=== PATIENT | male | born 1980 | race Caucasian/White ===

== ENCOUNTER 2016-11-15 11:03 | Day surgery (SDC) | payer OTHER ==
[~2016-11-15] VITALS: Ht 182.9 cm; Wt 120.2 kg
[~2016-11-15 11:03] MED LIST: AMBIEN 10MG TAB10 MG PO; CARVEDILOL6.25 MG PO; DICLOFENAC SODI50 M1 PO; ELAVIL25 MG PO; GABAPENTIN300 M1 PO; GABAPENTIN600 MG PO; IBUPROFEN600 MG PO; LORTAB 7.5/3251 TAB PO; NORCO 325 MG-51 TAB PO; NORCO1 TAB PO; PAXIL20 M1 PO; PHENERGAN 25MG.25 M1 PO; PRILOSEC20 M1 PO; PRILOSEC40 MG PO; PRINIVIL10 MG PO; ROBAXIN-750750 MG PO; TRAMADOL 50MG T50 MG PO
[2016-11-15 11:24] VITALS: BP 122/68
[2016-11-15] MEDS ORDERED: RISPERIDONE0.5 MG PO (11:31)
[2016-11-15] MEDS ORDERED: OMEGA-31000 M1 PO (11:32)
[2016-11-15] MEDS ORDERED: VITAMIN D31000 IU PO (11:32)
[2016-11-15 11:49] VITALS: BP 122/68; BP 146/84
[2016-11-15 12:05] VITALS: BP 142/76
--- NOTE | 2016-11-15 12:08 | Procedure Note ---
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 Post laminectomy syndrome lumbar spine. Post-procedure diagnosis: Same. Indications for procedure: Very pleasant 35-year-old white male we've been treating her pain clinic for quite some time for chronic low back pain secondary to degenerative disc disease lumbar spine multiple levels and post laminotomy syndrome lumbar spine. Patient has had lumbar epidural steroid injections in the past with minimal results. Today we will give him epidural steroid injection from the caudal approach. Procedure detail: Procedure: Caudal epidural steroid injection under fluoroscopy Informed consent was obtained and the risks and benefits of the procedure were explained to the patient. The patient was taken to the procedure room and noninvasive monitors placed, including noninvasive blood pressure cuff and pulse oximeter. The back was viewed using C-arm Fluoroscopy and prepped using Betadine as a cleansing solution and the caudal was visualized with fluoroscopy in the lateral position. Skin and subcutaneous tissues were anesthetized using lidocaine 1.5% and a 25-gauge needle. After this, an 25 Touhy spinal needle was placed into the caudal space using fluoroscopic guidance. Then a solution containing lidocaine 1.5%, 4 mL +3 mL of normal saline and Depo-Medrol 80 mg were incrementally injected into the lumbar epidural space. The patient tolerated the procedure well with no complications. The patient was observed in the Pain Clinic and then discharged home neurologically intact. Plan and disposition: Patient was reevaluated 10 minutes post procedure. Patient reports 90 percent improvement terms of his bilateral hip and leg pain. Patient continued to complain of pain at the injection site. Otherwise doing much better. He will be back to pain clinic for further evaluation. at 1202
[2016-12-27] MEDS ORDERED: LORTAB 7.5/3251 TAB PO (11:38)
[2017-01-20] MEDS ORDERED: PROBIOTIC1 EAC3 PO (11:40)
== END 2016-11-15 12:05 ==
LOC: PM 11:03
PROC: 3E0R33Z Introduction of Anti-inflammatory into Spinal Canal, Percutaneous Approach (ICD-10-PCS; principal; 2016-11-15)
PROC: 3E0R3BZ Introduction of Anesthetic Agent into Spinal Canal, Percutaneous Approach (ICD-10-PCS; 2016-11-15)
DX: M51.16 Intervertebral disc disorders with radiculopathy, lumbar region (principal); M96.1 Postlaminectomy syndrome, not elsewhere classified
CPT/HCPCS: J1040

== ENCOUNTER → 2017-02-07 | Outpatient (CLI) | payer OTHER ==
[~2017-02-07] MED LIST changes: +OMEGA-31000 M1 PO; +PROBIOTIC1 EAC3 PO; +RISPERIDONE0.5 MG PO; +VITAMIN D31000 IU PO
--- NOTE | 2017-02-08 14:08 | RADIOLOGY REPORT PS360 ---
MRI-T-SPINE W/O HISTORY: Worsening back pain, pain in right arm and shoulder WORSENING NECK PAIN ORDERING PHYSICIAN: Ted Mejias MD PATIENT AGE: 36 years COMPARISON: 01/07/2016 TECHNIQUE: Standard multiplanar multiecho sequences are performed without contrast. 3-D MIP and myelographic images are also rendered and reviewed FINDINGS: There is normal alignment. Mild multilevel disc desiccation with slight decrease in the disc spaces noted consistent with mild spondylosis of the thoracic spine. There is a small left paracentral disc protrusion/herniation at T6-T7 versus disc osteophyte complex. This is causing mild left lateral recess narrowing. Mild multilevel facet arthritic changes are noted as before with anterior osteophytes. IMPRESSION: 1. Mild generalized spondylosis of the thoracic spine. No acute fracture or dislocation. 2. Small left paracentral protrusion/herniation at T6-T7 versus disc osteophyte complex causing mild left lateral recess narrowing at that level
== END ==
LOC: RAD 13:27
DX: M54.2 Cervicalgia (principal); M54.6 Pain in thoracic spine

== ENCOUNTER 2017-08-12 14:57 | Emergency (ER) | payer MEDICAID ==
[~2017-08-12] VITALS: Ht 182.9 cm; Wt 122.5 kg
[~2017-08-12 14:57] MED LIST changes: +MOVANTIK12.5 MG PO; +MYRBETRIQ25 MG PO
--- OUTSIDE RECORDS SUMMARY | 2017-08-12 15:07 | External Medical Summary Rpt ---
Author Author [facility] Organization [facility] Address Unknown Phone Unavailable Care Team Providers Care Manager Assembly Name Role Phone DR MARILU PCP [phone] Encounter [facility] [id number] Date(s): 07/22/17 - 07/22/17 [facility] [address] [place] [address]- Discharge Diagnosis: Peripheral positional vertigo Discharge Diagnosis: Dizziness Discharge Diagnosis: Nausea Discharge Diagnosis: Chronic back pain Discharge Disposition: OP Self Care or Home Attending Physician: CASSANDRA PARKER MD-EMR Admitting Physician: CASSANDRA PARKER MD-LOVE Referring Physician: CASSANRDA PARKER MD-EMR Reason for Visit DIZZINESS AND GIDDINESS Vital Signs Most recent 1 2 to oldest [Reference Range]: Temperature Oral Source (07/22/17 1:18 AM) Temperature Fahrenheit Mode (07/22/17 1:18 AM) Temperature, 97.5 Deg F Fahrenheit (07/22/17 1:18 AM) [96.8-99.7 Deg F] Clinical 36.4 Deg C Temperature, (07/22/17 1:18 AM) C Peripheral 68 bpm 66 bpm Pulse Rate (07/22/17 3:46 AM) (07/22/17 1:18 AM) [60-100 bpm] Respiratory 16 Breaths/Min 18 Breaths/Min Rate [14-20 (07/22/17 3:46 AM) (07/22/17 1:18 AM) Breaths/Min] Blood 114/63 mmHg 130/83 mmHg Pressure (07/22/17 3:46 AM) (07/22/17 1:18 AM) [90-140/60-9 0 mmHg] Mean 80 mmHg Arterial (07/22/17 3:46 AM) Pressure (MAP) Oxygen 96 % 98 % Saturation (07/22/17 3:46 AM) (07/22/17 1:18 AM) [94-100 %] Oxygen Room air Room air Therapy Mode (07/22/17 3:46 AM) (07/22/17 1:18 AM) Height Stated Source (07/22/17 1:18 AM) Height Entry [place] Format (07/22/17 1:18 AM) Height/Lengt 5 ft h, ARMENIAN (07/22/17 1:18 AM) (ft) Height/Lengt 11 Inch h ARMENIAN (07/22/17 1:18 AM) CLINICALHEIG 180.34 cm HT (07/22/17 1:18 AM) Weight Critical estimated dosing Source, ED weight (07/22/17 1:18 AM) Weight Entry [place] Format (07/22/17 1:18 AM) Weight 260 lb [place] lb (07/22/17 1:18 AM) CLINICALWEIG 118.18 kg HT (07/22/17 1:18 AM) Body Surface 2.36 m2 Area (BSA) (07/22/17 1:18 AM) Body Mass 36.3 kg/m2 Index (BMI) *HI* [19-24 (07/22/17 1:18 AM) kg/m2] [place] Body 74.31 kg Weight (07/22/17 1:18 AM) Problem List Condition Effective Status Health Informant Dates Status Arthritis(Co Active nfirmed) Difficulty Active controlling anger(Confir med) GERD Active (gastroesoph ageal reflux disease)(Con firmed) Hx of Active seizure disorder(Con firmed)1 History of Active pericarditis (Confirmed) History of Active myocarditis( Confirmed) Hearing Active impaired(Con firmed) Hernia, Active hiatal(Confi rmed) Kidney Active stones(Confi rmed) Cervical Active herniated disc(Confirm ed) 1as a child Allergies, Adverse Reactions, Alerts Substance Reaction Severity Status Contrast Dye Itching Active Dilaudid Itching Active Medications acetaminophen-hydrocodone ([place] 7.5 mg-325 mg oral tablet)1 Tablet(s) Oral Every 6 Hours as needed for pain. carvedilol (Coreg 6.25 mg oral tablet) 1 Tablet(s) Oral Two Times A Day. cholecalciferol (Vitamin D3) 7,000 Milligram(s) Oral Every Day. diclofenac (diclofenac sodium 75 mg oral delayed release tablet)1 Tablet(s) Oral Two Times A Day. gabapentin (gabapentin 300 mg oral capsule) 2 Capsule(s) Oral Three Times A Day. lisinopril (lisinopril 10 mg oral tablet) 1 Tablet(s) Oral Every Day. meclizine (meclizine 25 mg oral tablet)1 Tablet(s) Oral Three Times A Day as needed as needed for dizziness for 7 Day(s). Refills: 0.Ordering provider: CASSANDRA PARKER MD-EMR methocarbamol (methocarbamol 750 mg oral tablet)2 Tablet(s) Oral Three Times A Day for 10 Day(s). omega-3 polyunsaturated fatty acids (Fish Oil) 1,400 Milligram(s) Oral Three Times A Day. omeprazole (omeprazole 40 mg oral delayed release capsule)1 Capsule(s) Oral Every Day. ondansetron (Zofran ODT 4 mg oral tablet, disintegrating)1 Tablet(s) Oral Three Times A Day for 3 Day(s). Refills: 0.Ordering provider: CASSANDRA PARKER MD-EMR PARoxetine (paroxetine 40 mg oral tablet) 0.5 Milligram(s) Oral Every Day. risperiDONE (risperiDONE 1 mg oral tablet) 1 Tablet(s) Oral Two Times A Day. Results GENERAL CHEMISTRY Most recent 1 to oldest [Reference Range]: Sodium Level 139 mmol/L [136-146 (07/22/17 2:20 AM) mmol/L] Potassium 4.0 mmol/L Level (07/22/17 2:20 AM) [3.5-5.1 mmol/L] Chloride 106 mmol/L Level (07/22/17 2:20 AM) [102-112 mmol/L] Carbon 27 mmol/L Dioxide (07/22/17 2:20 AM) Level [21-32 mmol/L] Anion Gap 10 [9-20] (07/22/17 2:20 AM) Glucose 103 mg/dL Level (07/22/17 2:20 AM) [74-106 mg/dL] Blood Urea 17 mg/dL Nitrogen (07/22/17 2:20 AM) [7-22 mg/dL] Creatinine 0.80 mg/dL Level (07/22/17 2:20 AM) [0.70-1.30 mg/dL] eGFR 131 mL/min/1.73m2 [>=60 (07/22/17 2:20 AM) mL/min/1.73m 2] eGFR 108 mL/min/1.73m2 NonAfrican (07/22/17 2:20 AM) [>=60 mL/min/1.73m 2] Bun/Creatini 21.2 ne *HI* [8.0-20.0] (07/22/17 2:20 AM) Calcium 9.0 mg/dL Level (07/22/17 2:20 AM) [8.5-10.1 mg/dL] CARDIAC SPECIFIC MARKERS Most recent 1 to oldest [Reference Range]: Troponin I <0.015 ng/mL Ultra (07/22/17 2:20 AM) [0.015-0.045 ng/mL] HEMATOLOGY Most recent 1 to oldest [Reference Range]: WBC [4.2-9.1 9.8 K/uL K/uL] *HI* (07/22/17 2:20 AM) RBC 4.58 Million/uL [4.63-6.08 *LOW* Million/uL] (07/22/17 2:20 AM) Hgb 13.3 g/dL [13.7-17.5 *LOW* g/dL] (07/22/17 2:20 AM) Hct 38.2 % [40.1-51.0 *LOW* %] (07/22/17 2:20 AM) MCV 83.4 fL [79.0-94.8 (07/22/17 2:20 AM) fL] MCH 29.0 pg [25.6-32.2 (07/22/17 2:20 AM) pg] MCHC 34.8 Gram/dL [32.2-36.5 (07/22/17 2:20 AM) Gram/dL] Platelet 312 K/uL Count (07/22/17 2:20 AM) [163-369 K/uL] MPV 8.9 fL [9.4-12.4 *LOW* fL] (07/22/17 2:20 AM) RDW 12.8 % [11.6-14.4 (07/22/17 2:20 AM) %] Neut % 50.2 % [34.0-71.0 (07/22/17 2:20 AM) %] Neut # 4.90 K/uL [1.56-6.13 (07/22/17 2:20 AM) K/uL] Lymph % 35.6 % [19.3-53.1 (07/22/17 2:20 AM) %] Lymph # 3.47 x10(3)/uL [1.00-3.90 (07/22/17 2:20 AM) x10(3)/uL] [place] % 10.1 % [3.0-9.0 %] *HI* (07/22/17 2:20 AM) [place] # 0.98 K/uL [0.16-1.00 (07/22/17 2:20 AM) K/uL] Eos % 3.2 % [0.0-7.0 %] (07/22/17 2:20 AM) Eos # 0.31 x10(3)/uL [0.00-0.80 (07/22/17 2:20 AM) x10(3)/uL] Baso % 0.6 % [0.0-1.5 %] (07/22/17 2:20 AM) Baso # 0.06 x10(3)/uL [0.00-0.20 (07/22/17 2:20 AM) x10(3)/uL] Slide Review No (07/22/17 2:20 AM) IG# 0.03 x10(3)/uL [0.00-0.05 (07/22/17 2:20 AM) x10(3)/uL] IG% 0.30 % [0.00-0.60 (07/22/17 2:20 AM) %] Immunizations No data available for this section Procedures No data available for this section Social History Social History Response Type Smoking Status Former smoker Assessment and Plan No data available for this section Hospital Discharge Instructions Patient EducationBack Exercises Benign Positional Vertigo Dizziness Nausea, Adult Vertigo
--- OUTSIDE RECORDS SUMMARY | 2017-08-12 15:07 | External Medical Summary Rpt ---
Author Author [facility] Organization [facility] Address Unknown Phone Unavailable Care Team Providers Care Wardrobe Technician Name Role Phone DR MARILU PCP [phone] Encounter [facility] [id number] Date(s): 07/22/17 - 07/22/17 [facility] [address] [place] [address]- Discharge Diagnosis: Peripheral positional vertigo Discharge Diagnosis: Dizziness Discharge Diagnosis: Nausea Discharge Diagnosis: Chronic back pain Discharge Disposition: OP Self Care or Home Attending Physician: CASSANDRA PARKER MD-EMR Admitting Physician: CASSANDRA PARKER MD-LOVE Referring Physician: CASSANDRA PARKER MD-EMR Reason for Visit DIZZINESS AND [...] Stated Source (07/22/17 1:18 AM) Height Entry [place] Format (07/22/17 1:18 AM) Height/Lengt 5 ft h, INDONESIAN (07/22/17 1:18 AM) (ft) Height/Lengt 11 Inch h INDONESIAN (07/22/17 1:18 AM) CLINICALHEIG 180.34 cm HT (07/22/17 1:18 AM) Weight Critical estimated dosing Source, ED weight (07/22/17 1:18 AM) Weight Entry [place] Format (07/22/17 1:18 AM) Weight 260 lb [place] lb (07/22/17 1:18 AM) CLINICALWEIG 118.18 kg HT (07/22/17 1:18 AM) Body Surface 2.36 m2 Area (BSA) (07/22/17 1:18 AM) Body Mass 36.3 kg/m2 Index (BMI) *HI* [19-24 (07/22/17 1:18 AM) kg/m2] [place] Body 74.31 kg Weight (07/22/17 1:18 AM) [...] Itching Active Dilaudid Itching Active Medications acetaminophen-hydrocodone ([place] 7.5 mg-325 mg oral tablet)1 Tablet(s) Oral [...] 3.47 x10(3)/uL [1.00-3.90 (07/22/17 2:20 AM) x10(3)/uL] [place] % 10.1 % [3.0-9.0 %] *HI* (07/22/17 2:20 AM) [place] # 0.98 K/uL [0.16-1.00 (07/22/17 2:20 AM) [...]
--- OUTSIDE RECORDS SUMMARY | 2017-08-12 15:07 | External Medical Summary Rpt ---
Author Author [facility] Organization [facility] Address Unknown Phone Unavailable Care Team Providers Care Passenger Elevator Operator Name Role Phone ANUEL, (REF) PCP [phone] Encounter [facility] [id number] Date(s): 12/09/16 - 12/09/16 [facility] [address] [place] [address]- Discharge Diagnosis: Colitis Discharge Diagnosis: Lower abdominal pain Discharge Disposition: OP Self Care or Home Attending Physician: GUSTABO DEL ANGEL, -EMR Admitting Physician: GUSTABO DEL ANGEL MD-EMR Referring Physician: GUSTABO DEL ANGEL MD-EMR Reason for Visit NONINFECTIVE GASTROENTERITIS AND COLITIS, UNSPECIFIED Vital Signs Most recent 1 2 to oldest [Reference Range]: Temperature Oral Source (12/09/16 4:47 PM) Temperature Fahrenheit Mode (12/09/16 4:47 PM) Temperature, 98.4 Deg F Fahrenheit (12/09/16 4:47 PM) [96.8-99.7 Deg F] Clinical 36.9 Deg C Temperature, (12/09/16 4:47 PM) C Peripheral 107 bpm 88 bpm Pulse Rate *HI* (12/09/16 4:47 PM) [60-100 bpm] (12/09/16 8:29 PM) Respiratory 18 Breaths/Min 18 Breaths/Min Rate [14-20 (12/09/16 8:29 PM) (12/09/16 4:47 PM) Breaths/Min] Blood 154/74 mmHg 135/64 mmHg Pressure *HI* (12/09/16 4:47 PM) [90-140/60-9 (12/09/16 8:29 PM) 0 mmHg] Oxygen 97 % Saturation (12/09/16 4:47 PM) [94-100 %] Oxygen Room air Therapy Mode (12/09/16 4:47 PM) Problem List Condition Effective Status Health Informant [...] Itching Active Dilaudid Itching Active Medications acetaminophen-hydrocodone ([place] 5 mg-325 mg oral tablet)1 Tab, Oral, Every 6 Hours, 3 Day(s), As Needed, for pain, Refills: 0Ordering provider: GAETANO HUTCHINSON APRN carvedilol (Coreg 6.25 mg oral tablet) 1 Tab, Oral, Two Times A Day, Refills: 0 cholecalciferol (Vitamin D3) 7,000 mg, Oral, Every Day, Refills: 0 ciprofloxacin (Cipro 500 mg oral tablet)1 Tab, Oral, every 12 hours, 7 Day(s), Refills: 0Ordering provider: GAETANO HUTCHINSON APRN diclofenac (diclofenac sodium 75 mg oral delayed release tablet)1 Tab, Oral, Two Times A Day, Refills: 0 lisinopril (lisinopril 10 mg oral tablet) 1 Tab, Oral, Every Day, Refills: 0 methocarbamol (methocarbamol 750 mg oral tablet)2 Tab, Oral, Three Times A Day, 10 Day(s), Refills: 0 metroNIDAZOLE (Flagyl 500 mg oral tablet)1 Tab, Oral, Every 8 Hours, 7 Day(s), Refills: 0Ordering provider: GAETANO HUTCHINSON APRN omega-3 polyunsaturated fatty acids (Fish Oil) 1,400 mg, Oral, Three Times A Day, Refills: 0 risperiDONE (risperiDONE 1 mg oral tablet) 1 Tab, Oral, Two Times A Day, Refills: 0 Results GENERAL CHEMISTRY Most recent 1 to oldest [Reference Range]: Sodium Level 141 mmol/L [136-146 (12/09/16 5:13 PM) mmol/L] Potassium 4.1 mmol/L Level (12/09/16 5:13 PM) [3.5-5.1 mmol/L] Chloride 107 mmol/L Level (12/09/16 5:13 PM) [102-112 mmol/L] Carbon 23 mmol/L Dioxide (12/09/16:13 PM) Level [21-32 mmol/L] Anion Gap 15 [9-20] (12/09/16 5:13 PM) Glucose 124 mg/dL Level *HI* [74-106 (12/09/16 5:13 PM) mg/dL] Blood Urea 17 mg/dL Nitrogen (12/09/16 5:13 PM) [7-22 mg/dL] Creatinine 1.00 mg/dL Level (12/09/16 5:13 PM) [0.70-1.30 mg/dL] eGFR 102 mL/min/1.73m2 [>=60 (12/09/16 5:13 PM) mL/min/1.73m 2] eGFR 84 mL/min/1.73m2 NonAfrican (12/09/16:13 PM) [>=60 mL/min/1.73m 2] Bun/Creatini 17.0 ne (12/09/16 5:13 PM) [8.0-20.0] Calcium 8.8 mg/dL Level (12/09/16 5:13 PM) [8.5-10.1 mg/dL] Protein 6.7 Gram/dL Total (12/09/16:13 PM) [6.4-8.2 Gram/dL] Albumin 3.5 Gram/dL Level (12/09/16 5:13 PM) [3.4-5.0 Gram/dL] Globulin 3.2 Gram/dL [1.5-4.5 (12/09/16 5:13 PM) Gram/dL] A/G Ratio 1.1 [1.1-2.5] (12/09/16 5:13 PM) Bilirubin 0.3 mg/dL Total (12/09/16 5:13 PM) [0.2-1.0 mg/dL] Alk Phos 108 Units/Liter [27-136 (12/09/16 5:13 PM) Units/Liter] AST [5-37 20 Units/Liter Units/Liter] (12/09/16 5:13 PM) ALT [12-78 39 Units/Liter Units/Liter] (12/09/16 5:13 PM) Lipase Level 130 Units/Liter [73-393 (12/09/16 5:13 PM) Units/Liter] Lactic Acid 1.8 mmol/L Level (12/09/16 5:13 PM) [0.4-2.0 mmol/L] HEMATOLOGY Most recent 1 to oldest [Reference Range]: WBC [4.2-9.1 10.0 K/uL K/uL] *HI* (12/09/16 5:13 PM) RBC 4.25 Million/uL [4.63-6.08 *LOW* Million/uL] (12/09/16 5:13 PM) Hgb 12.2 g/dL [13.7-17.5 *LOW* g/dL] (12/09/16 5:13 PM) Hct 36.2 % [40.1-51.0 *LOW* %] (12/09/16 5:13 PM) MCV 85.2 fL [79.0-94.8 (12/09/16 5:13 PM) fL] MCH 28.7 pg [25.6-32.2 (12/09/16 5:13 PM) pg] MCHC 33.7 Gram/dL [32.2-36.5 (12/09/16 5:13 PM) Gram/dL] Platelet 300 K/uL Count (12/09/16 5:13 PM) [163-369 K/uL] MPV 8.7 fL [9.4-12.4 *LOW* fL] (12/09/16 5:13 PM) RDW 12.7 % [11.6-14.4 (12/09/16 5:13 PM) %] Neut % 58.3 % [34.0-71.0 (12/09/16 5:13 PM) %] Neut # 5.84 K/uL [1.56-6.13 (12/09/16 5:13 PM) K/uL] Lymph % 27.8 % [19.3-53.1 (12/09/16 5:13 PM) %] Lymph # 2.79 x10(3)/uL [1.00-3.90 (12/09/16 5:13 PM) x10(3)/uL] [place] % 8.9 % [3.0-9.0 %] (12/09/16 5:13 PM) [place] # 0.89 K/uL [0.16-1.00 (12/09/16 5:13 PM) K/uL] Eos % 4.2 % [0.0-7.0 %] (12/09/16 5:13 PM) Eos # 0.42 x10(3)/uL [0.00-0.80 (12/09/16 5:13 PM) x10(3)/uL] Baso % 0.6 % [0.0-1.5 %] (12/09/16 5:13 PM) Baso # 0.06 x10(3)/uL [0.00-0.20 (12/09/16 5:13 PM) x10(3)/uL] Slide Review No (12/09/16 5:13 PM) IG# 0.02 x10(3)/uL [0.00-0.05 (12/09/16 5:13 PM) x10(3)/uL] IG% 0.20 % [0.00-0.60 (12/09/16 5:13 PM) %] URINALYSIS Most recent 1 to oldest [Reference Range]: Urine Type U CleanCatch (12/09/16 5:13 PM) Urine Color Yellow *NA* (12/09/16 5:13 PM) Urine Clear Appearance (12/09/16 5:13 PM) Urine 1.007 Specific (12/09/16 5:13 PM) [place] [1.005-1.030 ] Urine pH 6.0 Dipstick (12/09/16 5:13 PM) [6.0-8.0] Urine Negative Leukocyte (12/09/16 5:13 PM) Esterase [Negative] Urine Negative Nitrite (12/09/16 5:13 PM) [Negative] Urine Negative Protein (12/09/16 5:13 PM) Dipstick [Negative] Urine Negative Glucose (12/09/16 5:13 PM) Dipstick [Negative] Urine Negative Ketones (12/09/16 5:13 PM) Dipstick [Negative] Urine 0.2 EU/dL Urobilinogen (12/09/16 5:13 PM) Dipstick Urine Negative Bilirubin (12/09/16 5:13 PM) Dipstick [Negative] Urine Blood Negative Dipstick (12/09/16 5:13 PM) [Negative] Ur Bacteria Trace *ABN* (12/09/16 5:13 PM) Ur 0-2 /HPF Epithelial *ABN* Cells (12/09/16 5:13 PM) Microbiology Reports TEST: Urine Culture STATUS: Order in Progress BODY SITE: SOURCE: Urine, Clean Catch COLLECTED DATE/TIME: 12/09/16 5:13 PMPRELIMINARY REPORTNo growth Immunizations No data available for this section Procedures No data available for this section Social History Social History Response Type Smoking Status Former smoker Assessment and Plan No data available for this section Hospital Discharge Instructions Patient EducationColitis Food Choices to Help Relieve Diarrhea, Adult Gastrointestinal Bleeding, [id number]
--- OUTSIDE RECORDS SUMMARY | 2017-08-12 15:07 | External Medical Summary Rpt ---
Author Author [facility] Organization [facility] Address Unknown Phone Unavailable Care Team Providers Care Card Services Specialist Name Role Phone ANUEL, (REF) PCP [phone] Encounter [facility] [id number] Date(s): 12/09/16 - 12/09/16 [facility] [address] [place] [address]- Discharge Diagnosis: Colitis Discharge Diagnosis: Lower abdominal [...] Itching Active Dilaudid Itching Active Medications acetaminophen-hydrocodone ([place] 5 mg-325 mg oral tablet)1 Tab, Oral, [...] 2.79 x10(3)/uL [1.00-3.90 (12/09/16 5:13 PM) x10(3)/uL] [place] % 8.9 % [3.0-9.0 %] (12/09/16 5:13 PM) [place] # 0.89 K/uL [0.16-1.00 (12/09/16 5:13 PM) [...] PM) Urine 1.007 Specific (12/09/16 5:13 PM) [place] [1.005-1.030 ] Urine pH 6.0 Dipstick (12/09/16 [...] to Help Relieve Diarrhea, Adult Gastrointestinal Bleeding, [id number]
--- OUTSIDE RECORDS SUMMARY | 2017-08-12 15:08 | External Medical Summary Rpt | CCD ---
Author Author , JAKE JOSEPH Address Unknown Phone [email or web address] Care Team Providers Care Sas Sql Developer Name Role Phone [facility] Unavailable Unavailable ASSOCIATES, [facility] MULBERRY, MULBERRY Unavailable Unavailable Purpose Continuity of Care Document - 07-11-2017 through 2016 Problems Code Diagnosis DOS Provider Status M5440 LUMBAGO 07-11-2017 [facility]ARE WITH ASSOCIATES SCIATICA UNSPECIFIED SIDE M549 DORSALGIA 07-11-2017 FAMILY CARE UNSPECIFIED ASSOCIATES Z8739 PERSONAL HX 07-11-2017 [facility]ILY [facility]ARE OTH DZ ASSOCIATES MUSCULOSKEL SYS&CONNECT V TISS G40.909 Epilepsy, unspecified , not intractable , without status epilepticus H81.399 Other peripheral vertigo, unspecified ear K21.9 Gastro-esop hageal reflux disease without esophagitis M19.90 Unspecified osteoarthri tis, unspecified site M54.9 Dorsalgia, unspecified R07.9 Chest pain, unspecified R11.0 Nausea R42 Dizziness and giddiness Z79.899 Other terminal operations manager (current) drug therapy Z87.442 Personal history of urinary calculi Z87.891 Personal history of nicotine dependence Z88.5 Allergy status to narcotic agent status Z90.89 Acquired absence of other organs Z91.041 Radiographi c dye allergy status Encounters Encounter Start End Date Code Location Performer Type Date OFFICE 53552 FAMILY MULBERRY OUTPATIEN 7 7 CARE T VISIT ASSOCIATE 15 S MINUTES
--- OUTSIDE RECORDS SUMMARY | 2017-08-12 15:08 | External Medical Summary Rpt | CCD ---
Demographics Preferred Language Cypriot Marital Status Unknown Yarsanism Affiliation Unknown Race Unknown Ethnic Group Unknown Author Author , JAKE JOSEPH Address Unknown Phone Immunization No patient found.
--- OUTSIDE RECORDS SUMMARY | 2017-08-12 15:08 | External Medical Summary Rpt | CCD ---
Demographics Preferred Language Armenian Marital Status Unknown Voodoo Affiliation Unknown Race Unknown Ethnic Group Unknown Author Author , JAKE JOSEPH Address Unknown Phone Immunization No patient found.
--- OUTSIDE RECORDS SUMMARY | 2017-08-12 15:08 | External Medical Summary Rpt | CCD ---
Author Author , JAKE JOSEPH Address Unknown Phone [email or web address] Care Team Providers Care Plan Coordinator Name Role Phone FAMILY CARE Unavailable Unavailable [...] Nausea R42 Dizziness and giddiness Z79.899 Other treasury associate (current) drug therapy Z87.442 Personal history of urinary calculi Z87.891 Personal history of nicotine dependence Z88.5 Allergy status to narcotic agent status Z90.89 Acquired absence of other organs Z91.041 Radiographi c dye allergy status Encounters Encounter Start End Date Code Location Performer Type Date OFFICE 98727 FAMILY MULBERRY OUTPATIEN 7 7 CARE T VISIT ASSOCIATE 15 S MINUTES
--- OUTSIDE RECORDS SUMMARY | 2017-08-12 15:08 | External Medical Summary Rpt | CCD ---
Author Author , JAKE JOSEPH Address Unknown Phone [email or web address] Care Team Providers Care Sql Server Consultant Name Role Phone [facility] Unavailable Unavailable ASSOCIATES, [facility] ANUEL AGEE Unavailable Unavailable Purpose Continuity of Care Document - 07-11-2017 through 2016 Problems Code Diagnosis DOS Provider Status M5440 LUMBAGO 07-11-2017 [facility]ARE WITH ASSOCIATES SCIATICA UNSPECIFIED SIDE M549 DORSALGIA 07-11-2017 FAMILY CARE UNSPECIFIED ASSOCIATES Z8739 PERSONAL HX 07-11-2017 FAMILY CARE OTH DZ ASSOCIATES MUSCULOSKEL SYS&CONNECT V TISS Encounters Encounter Start End Date Code Location Performer Type Date OFFICE 43019 FAMILY ANUEL OUTPATIEN 7 7 CARE T VISIT ASSOCIATE 15 S MINUTES
--- OUTSIDE RECORDS SUMMARY | 2017-08-12 15:08 | External Medical Summary Rpt ---
Author Author JA[facility] [employer]io, [employer] Organization [employer] Address Unknown Phone Unavailable
--- OUTSIDE RECORDS SUMMARY | 2017-08-12 15:08 | External Medical Summary Rpt | CCD ---
Author Author , JAKE JOSEPH Address Unknown Phone [email or web address] Care Team Providers Care Coupon And Bond Collection Clerk Name Role Phone FAMILY CARE Unavailable Unavailable [...] Date Code Location Performer Type Date OFFICE 25390 FAMILY ANUEL OUTPATIEN 7 7 CARE T VISIT ASSOCIATE 15 S MINUTES
--- NOTE | 2017-08-12 15:43 | Urgent Treatment Center Report ---
History of Present Issue Date/Time Seen by Provider 08/12/17 1543 Visit Reason Pt arrived:Walked Presenting Problem:PT C/O OF LOWER BACK PAIN THAT IS RADIATING DOWN THE BACK OF LEGS Location if Accident: Onset of symptoms date/time:08/06/17 or onset unknown for: Have you (or family members/close friends) recently traveled outside the [place]? N If Yes, where/when: Have you had exposure to infectious disease within the past month? TB? Other? Specify: Here w/ significant other c/o acute exacerbation of chronic low back pain following a fall one week ago. Primarily requesting xray to ensure no changes and [facility]. Reports he tripped, fell forward "onto my hands and knees". Extensive back hx w/ three prior surgeries, one being a fusion. Unable to report full hx or diagnosis. Knows DDD for sure. Most recent surgery he thinks in 2011. previously treated by pain mgmt at [facility] but due to change w/ insurance, had to return to [place] and now treated there. Currently weaning hydrocodone from 7.5mg QID to currently 1.5 tablets daily. "I hope to get off that". Also takes gabapentin 800mg TID, robaxin 750mg TID, diclofenac 75mg BID, lidocaine topically, uses TENs units as well as alternates heat and ice. Since fall, mid low back pain slowly getting worse. Most severe with sitting. Unable to sit or stand for any lengthy period of time. Describes a pinching. Pain radiating down kee LEs but not an abnormal symptom for him. Denies fever, incontinence, or more N/T then typically experiences. pt reports he is not here for further treatment of pain but instead, to ensure nothing has changed w/ xray. Source patient Exam Limitations no limitations (exam limited d/t pain), clinical condition ALLERGIES Coded Allergies: Iodinated Contrast- Oral and IV Dye (Iodinated Contrast Media - IV Dye) ( Intermediate, I-ITCHING 06/26/16) hydromorphone (From DILAUDID) (Intermediate, I-ITCHING 06/26/16) Home Medications Active Scripts Gabapentin 600 MG PO TID #90 TAB Ref 2 Prov: 03/28/16 HYDROCODONE/ACETAMINOPHEN (Lortab 7.5-325 MG Tablet) 1 TAB PO QID #120 TAB Prov: 12/27/16 Reported Medications OMEPRAZOLE MAGNESIUM (Prilosec 20MG) 20 MG PO BID PAROXETINE HCL (Paxil) 20 MG PO DAILY Methocarbamol (Robaxin 750MG) 750 MG PO TID Diclofenac Sodium 75 MG PO BID Carvedilol (Carvedilol 6.25MG) 12.5 MG PO BID LISINOPRIL (Lisinopril) 10 MG PO DAILY CHOLECALCIFEROL (VITAMIN D3) (Vitamin D) 7,000 IUNITS PO DAILY Lactobacillus Combo No.11 (Probiotic) 1 EACH PO DAILY Mirabegron (Myrbetriq) 25 MG PO DAILY NALOXEGOL OXALATE (Movantik) (Unknown Dose) PO DAILY History Medical History General CAD? Yes Angina: Yes ME: Yes Hypertension? No Hyperlipidemia? Yes CHF? No DVT? No PE? No COPD? No Asthma? Yes Anemia? No GERD? Yes Gastric ulcers? No GI Bleed? No Hernia? Yes Thyroid Problems? No Hypothyroidism? No CVA? No Seizures? Yes Diabetes? No Renal Insuffiency? No UTI? No Stones? Yes BPH? No GB Disease: No Nephritic Syndrome? No Asplenia? No Hepatitis? No Sickle Cell Disease? No Arthritis? Yes Migraines? Yes Cataracts? No Glaucoma? No MRSA? No HIV? No TB? No Anxiety? No Depression? No Cancer? No More? Yes Additional hx: PANCREATITIS, MYOCARDITIS, BRONCHITIS DDD LUMBAR SPINE,COLITIS Immunization HX DT/Tetanus 1-4 YRS Surgical Hx Previous Surgery?Y CYST REMOVED FROM NOSE L4L5 SURGERY HAND SX Family History Family HX Diabetes Yes Hypertension Yes Cancer Yes Social History Smoking Hx Smoker: Never Smoker Tobacco: No Packs/day N/A Alcohol Alcohol: No Review of Systems All Other Systems Reviewed and Negative (as appropriate) Constitutional denies malaise, weakness (unchanged) Musculoskeletal see HPI, denies joint swelling, denies neck pain Skin denies change in color, denies lesions, denies lumps Psychiatric/Neurological see HPI Physical Exam Vital Signs Vital Signs Date Time Temp Pulse Resp B/P Pulse O2 O2 Flow FiO2 Ox Delivery Rate 08/12 1658 98.0 79 20 116/65 98 08/12 1533 98.0 79 20 11665 98 General Appearance moderate distress, ambulating with cane, slightly kyphotic, shuffled gait, wincing w/ some movements, leaning forward resting on exam counter rather than sitting Neck non-tender, supple Respiratory Status No: respiratory distress. Lung Sounds anterior: lungs clear. posterior: lungs clear. bilateral: lungs clear. Cardiovascular regular rate/rhythm, no peripheral edema, no murmur Back bowel/bladder continent, decreased range of motion (spine, Kee hips ), gait abnormality, unable to get onto table for reflexes or straight leg raises, TTP lower lumbar/sacral spine and kee lumbar regions, lumbar spine scarring Neurologic alert, no motor/sensory deficits, oriented x 3 Skin normal color, warm/dry Medical Decision Making LABS/Meds/Orders Pt receiving controlled substance in ED? No Results/Orders Orders Procedure Date/time Status LUMBAR SPINE 5 VIEWS 08/12 1612 Active XRAY/CT/US XRAY/CT/US XRAY L-spine XR interpretation by reviewed by me (w/ FAVIAN Muro MD) Xray Results multiple chronic findings including bones spurs, DDD, prior fusion but no acute findings Progress [facility] Progress Notes Date 08/12/17 Time 1640 Comment Discussed xray results with patient. patient not seeking any treatment and just wanted to know if any changes. Plans to call and F[facility] with [facility]. STRONGLY encouraged. Discussed steroids again but d/t prior hx of hallucinations w/ steroids, patient not willing to try them. Departure Departure Time of Disposition 1645 Disposition DC Home or Self Care(routine) Clinical Impression Primary Impression: Acute exacerbation of chronic low back pain Condition STABLE Referrals NO REFERRAL Call [facility] and schedule follow up appointment. Return if continuing to get worse in the meantime or for any new symptoms as we discussed. Patient Instructions DI for Back Pain With Sciatica Additional Instructions Continue your chronic medications Find a position that is comfortable Do not stop moving, makes stiffness worse. Avoid movements that worsen pain [facility] with [facility] Call clinic tonight or in the morning for final xray results Discharge Counseling Counseled pt/family regarding diagnosis, test results, medications/RX, home care, follow up needs at [phone]
[2017-08-12 16:58] VITALS: BP 116/65
--- NOTE | 2017-08-12 20:29 | RADIOLOGY REPORT PS360 ---
LUMBAR SPINE 5 VIEWS HISTORY: chronic back pain w/ 3 surgeries, acute fall one week ago chronic back pain 3 surgeries. Fall one week ago Patient Age: 36 years: Male Ordering Physician: KAMAR RODRIGUEZ APRN TECHNIQUE: 5 view lumbar spine series COMPARISON :Previous MRI lumbar September 2016. FINDINGS Previous surgery L4/5 with likely previous discectomy and placement of with 2 disc spacer devices are seen.. These appear to be intact and the disc spaces maintained. Posterior marginal osteophytes and hypertrophic ridging seen at this level. Likely laminectomy to the left. Degenerative disc space narrowing L3/4. Most evident the right. Mild degenerative facet changes at the lower L-spine. No acute fracture or findings. Pedicles transverse processes SI joints intact. Incidental note is made of a small 4.5 mm calculus lower pole calyx right kidney. There is also a 2 mm [place] calcification again seen projected over mid right kidney noted on previous KUB February 2017. Consider CT to further evaluate these renal calculi and calcification pattern. A generous stool noted throughout the right and transverse colon otherwise unremarkable bowel gas pattern IMPRESSION 1. Postsurgical changes and degenerative changes L4/5.. ... . Two disc spacer devices at this level with mild disc space narrowing.. ... Mild diffuse posterior osteophyte ridging at this level which indents the thecal sac as seen on prior MRI. 2.... Disc space narrowing L3/4. Also Noted.. Scant posterior marginal osteophytes 3. Right renal calcifications/calculi. Consider CT to further evaluate, particularly if hematuria or flank pain Nearly 1 cm [place] type calcification suggested mid right kidney, as well as 4.5 mm punctate calcification lower pole right kidney noted 4. No acute findings lumbar spine
== END 2017-08-12 16:59 | disposition home or self-care (01) ==
LOC: ER 14:57 → UTC 14:57
DX: M54.5 Low back pain (principal); E78.5 Hyperlipidemia, unspecified; K21.9 Gastro-esophageal reflux disease without esophagitis; Z88.8 Allergy status to other drugs, medicaments and biological substances

== ENCOUNTER 2017-09-15 21:27 | Inpatient (IN) | payer MEDICAID ==
[~2017-09-15] VITALS: Ht 182.9 cm; Wt 118.1 kg
[~2017-09-15 21:27] MED LIST changes: -MOVANTIK12.5 MG PO; +MOVANTIK25 MG PO; +OMEPRAZOLE40 MG PO; -PRILOSEC20 M1 PO
[2017-09-15 21:29] VITALS: BP 122/79
--- NOTE | 2017-09-15 21:36 | Emergency Room Report ---
History of Present Illness Time Seen by 2130 Presenting Problem in Triage Pt arrived:Walked Presenting Problem:BEGAN FEELING LIGHTHEADED WITH DYSPNEA. CHEST PAIN BEGAN ABOUT 45 MINS AGO. PAIN UP HIS NECK. PT REPORTS PREVIOUS HX OF OR. Onset of symptoms date/time:09/15 or onset unknown for: Treatment Prior to Arrival: SERVER MANAGER Provided by: Sepsis Risk Assessment: Temp: 99.4 B/P: 122/79 MAP: 93 Pulse: 103 Resp: 16 Recent fever? N Clinical Suspician of Infection? N Mental Status: 1 - Regular (Normal Baseline) Sepsis Risk:Low Sepsis Risk Have you (or family members/close friends) recently traveled outside the [place]? N If Yes, where/when: Have you had exposure to infectious disease within the past month? N TB? Other? Specify: Comment The patient complains of chest pain. He says that about an hour ago he was taking a bag of garbage into the trashcan, but not exerting himself, when he developed chest pain in his lower sternal area that radiated up into his neck. He says it feels like the discomfort you get when he swallowing air bubble. He says he got lightheaded, presyncopal, short of breath, but not diaphoretic or nauseated. He says his heart was racing. Symptoms are now gone. No recent hospitlizations, travel or surgery. He says he has a prior history of pericarditis and myocarditis in 1996 1997, when in the . He says that it was explained to him that his pericarditis and myocarditis were likely due to the immunization series he received to be in the . He says that they also told him he had "2 heart attacks". However, he says he did not have a cardiac cath, angioplasty, or stent placement. He has not had surgery. 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 He says he has seen Dr. Ramos for cardiac evaluation who tells him that his heart is fine and he is not on any treatment for his heart. He has also seen Dr. Miller. He says he has had some problems with his blood pressure since he had back surgery. He also has high cholesterol. He has a history of heart disease in his grandmother, but not in first-degree relatives. He is a former smoker. ALLERGIES Coded Allergies: Iodinated Contrast- Oral and IV Dye (Iodinated Contrast Media - IV Dye) ( Intermediate, I-ITCHING 06/26/16) hydromorphone (From DILAUDID) (Intermediate, I-ITCHING 06/26/16) Home Medications Active Scripts Gabapentin 600 MG PO TID #90 TAB Ref 2 Prov: 03/28/16 HYDROCODONE/ACETAMINOPHEN (Lortab 7.5-325 MG Tablet) 1 TAB PO QID #120 TAB Prov: 12/27/16 Reported Medications Carvedilol (Carvedilol 6.25MG) 6.25 MG PO BID OMEPRAZOLE MAGNESIUM (Prilosec 20MG) 20 MG PO BID CHOLECALCIFEROL (VITAMIN D3) (Vitamin D) 7,000 IUNITS PO DAILY Acetaminophen (Tylenol XS 500MG) 325 MG PO Q6HP PRN PAIN PAROXETINE HCL (Paxil) 20 MG PO DAILY Methocarbamol (Robaxin 750MG) 750 MG PO TID Diclofenac Sodium 75 MG PO BID LISINOPRIL (Lisinopril) 10 MG PO DAILY Lactobacillus Combo No.11 (Probiotic) 1 EACH PO DAILY Mirabegron (Myrbetriq) 25 MG PO DAILY NALOXEGOL OXALATE (Movantik) (Unknown Dose) PO DAILY History Medical History General CAD? Yes Angina: Yes OR: Yes Hypertension? No Hyperlipidemia? Yes CHF? No DVT? No PE? No COPD? No Asthma? Yes Anemia? No GERD? Yes Gastric ulcers? No GI Bleed? No Hernia? Yes Thyroid Problems? No Hypothyroidism? No CVA? No Seizures? Yes Diabetes? No Renal Insuffiency? No End Stage Renal Disease? No UTI? No Stones? Yes BPH? No GB Disease: No Nephritic Syndrome? No Asplenia? No Hepatitis? No Sickle Cell Disease? No Arthritis? Yes Migraines? Yes Cataracts? No Glaucoma? No MRSA? No HIV? No TB? No Anxiety? No Depression? Yes Cancer? No More? Yes Additional hx: MYOCARDITIS, BRONCHITIS DDD LUMBAR SPINE,COLITIS Immunization Hx Ped.Immunizations UTD No DT/Tetanus 1-4 YRS Surgical Hx Previous Surgery?Y CYST REMOVED FROM NOSE L4L5 SURGERY HAND SX Family History Family Hx Diabetes Yes Hypertension Yes Cancer Yes Social History Smoking Hx Smoker: Former Smoker Tobacco: No Packs/day N/A Are you/the child exposed to second-hand smoke: Yes Alcohol Alcohol: No Additionial History Additional History Review of records shows emergency department chest pain workups here in 2016 in 2014 that were negative. Review of Systems All Other Systems Reviewed and Negative Constitutional denies diaphoresis Respiratory shortness of breath Cardiovascular chest pain, denies syncope Physical Exam Vital Signs Vital Signs Date Time Temp Pulse Resp B/P Pulse O2 O2 Flow FiO2 Ox Delivery Rate 09/16 0304 86 09/16 0304 98 ROOM AIR 09/16 0250 97.9 86 18 108/69 98 ROOM AIR 09/16 0249 98.6 86 16 111/71 96 09/16 0221 88 14 104/58 96 09/16 0220 14 09/16 0215 14 09/16 0214 98.6 88 16 113/62 09/16 0205 81 12 112/75 98 09/15 2329 98.6 94 18 110/67 99 09/15 2228 102 20 116/79 97 09/15 2129 99.4 103 16 122/79 98 General Appearance normal appearance, WD/WN Eye Exam - bilateral eye normal exam, bilateral eye PERRL, bilateral eye EOMI Ear, Nose, Throat hearing grossly normal, normal ENT inspection Neck normal inspection, non-tender, supple, full range of motion Respiratory Status Yes: trachea midline, chest symmetrical, non tender chest. No: respiratory distress. Lung Sounds bilateral: normal breath sounds, lungs clear. Cardiovascular normal exam, regular rate/rhythm, no peripheral edema, no gallop, no JVD, no murmur, no rub, normal peripheral pulses Peripheral Pulses Pulses normal Yes Gastrointestinal normal bowel sounds, normal exam, non tender, soft, no organomegaly Extremities non-tender, normal range of motion, normal inspection Neurologic alert, repairer shoe sticks II-XII nml as tested, normal exam, oriented x 3 Mental status normal mood/affect Skin intact, normal color, warm/dry Medical Decision Making LABS/Meds/Orders Pt receiving controlled substance in ED? No Results/Orders Laboratory Tests 09/16/17 0025: Troponin I 0.07 H 09/15/172149: Troponin I < 0.02 09/15/172149: Sodium 143, Potassium 4.1, Chloride 107, Carbon Dioxide 25, BUN 12, Creatinine 1.0, Estimated Creat Clear 174, Estimated GFR (MDRD) 84, Glucose 115 H, Calcium 9.2, Total Bilirubin 0.3, AST 20, ALT 42, Alkaline Phosphatase 94, Total Protein 7.9, Albumin 3.8, Globulin 4.1 H, Albumin/Globulin Ratio 0.9 L, WBC 9.4, RBC 5.02, Hgb 14.3, Hct 42.2, MCV 84.0, RDW 13.3, Plt Count 375, MPV 6.7 L, Gran % 57.1, Gran # 5.4, Lymphocytes % 30.8, Monocytes % 6.4, Eosinophils % 4.9, Basophils % 0.7, Lymphocytes # 2.9, Monocytes # 0.6, Eosinophils # 0.5 H, Basophils # 0.1, PUBS MCHC 33.8, MCH 28.4 Current Medication Orders Sig/Maame Start time Last Medication Dose Route Stop Time Status Admin Aspirin 325 MG DAILY 09/16 900 UNV PO Carvedilol 6.25 MG BID 09/16 900 UNV PO Gabapentin 600 MG TID 09/16 900 UNV PO Hydrocodone Bitart/ 1 TAB DAILY 09/16 900 UNVr Acetaminophen PO Lisinopril 10 MG DAILY 09/16 900 UNV PO Pantoprazole Sodium 20 MG BID 09/16 900 UNV PO Paroxetine HCl 20 MG DAILY 09/16 900 UNV PO Nitroglycerin 1 IN Q6 09/16 0500 UNV TP Influenza Virus 0.5 ML PRN PRN 09/16 023 UNV Vaccine Quadrival IM Nicotine 21 MG DAILYP PRN 09/16 0230 UNV TD Nitroglycerin 1 IN ONCE ONE 09/16 0230 DC 09/16 TP 09/16 231 0225 Nitroglycerin 0.4 MG [id number] PRN 09/16 023 UNV SL Sodium Chloride 10 ML PRN PRN 09/16 0230 UNV IV Nitroglycerin 0 .STK-MED ONE 09/16 225 DC .ROUTE Nitroglycerin 0.4 MG [id number] PRN 09/16 0215 AC 09/16 SL 0220 Nitroglycerin 0 .STK-MED ONE 09/16 0209 DC SL Sodium Chloride 10 ML PRN PRN 09/15 2200 AC IV 09/16 2147 Aspirin 324 MG ONCE ONE 09/15 2145 DC 09/15 PO 09/15 Aspirin 0 .STK-MED ONE 09/15 2137 DC .ROUTE Orders Procedure Date/time Status DIET-NOTHING BY MOUTH 09/16 B Active TROPONIN I 09/16 1300 Active TROPONIN I 09/16 0900 Active TROPONIN I 09/16 0500 Complete ADMITTED PT IS ACTUALLY IN BED 09/16 0301 Active TROPONIN I 09/16 0022 Complete ADMIT PATIENT 09/16 UNK Active PULSE OXIMETRY REQUEST 09/16 UNK Active OXYGEN REQUEST 09/16 UNK Active VITAL SIGNS 09/16 UNK Active MANAGER INVESTMENT BANKING 09/16 UNK Active POM NURSE BUD HOSE ORDER 09/16 UNK Active IV SALINE LOCK 09/16 UNK Active CODE STATUS 09/16 UNK Active PATIENT ACTIVITY ORDER 09/16 UNK Active PHYSICIANS CONSULT 09/16 UNK Active [facility] PHYS CONSULT 09/16 UNK Active TROPONIN I 09/15 2257 Complete IV SALINE LOCK 09/15 2148 Active CARD FILER 09/15 2148 Active ELECTROCARDIOGRAM REQUEST 09/15 2147 Active CHEST(2 VIEWS-NOT PORTABLE) 09/15 2147 Active CARD FILER 09/15 2147 Active CBC WITH AUTO DIFF 09/15 2147 Complete CHEM 12 PROFILE 09/15 2147 Complete CM/EKG CM/EKG Comments EKG interpreted by Alexey Wood MD: Rhythm: sinus Rate: 102 [place]: normal Ectopy: none Conduction: normal ST Segment Changes: Early repolarization T Wave Changes: none Q Waves: none No evidence of acute ischemia or injury Prior electrocardiagrams reviewed. No change from prior tracings. EKG #2 interpreted by Alexey Wood MD: Rhythm: sinus Rate: 79 [place]: normal Ectopy: none Conduction: normal ST Segment Changes: Early repolarization T Wave Changes: none Q Waves: none No evidence of acute ischemia or injury XRAY/CT/US XRAY/CT/US XRAY chest Comment X-ray interpreted by Alexey Wood M.D.: atelectasis versus scars in the bases. Degenerative changes of thoracic spine with spurs. Progress - 11:30 PM: Remains asymptomatic, no chest pain. HR 88. I discussed continuing his workup with a second troponin, 3 hours after the first. He is reluctant to do this, he would rather be discharged, but he does consent. 1:45 AM: Second troponin increased to 0.07. The patient has not had any recurrence of his chest pain. He has had a few twinges of chest wall pain, that he has had previously from spurs in his back, only when he moves. No return of chest pressure. He would prefer that I call Dr. Miller, rather than Dr. Ramos. I spoke with Dr. Miller, who recommends admission. No further instructions. I discussed the case with Dr. Roth and he will admit to his service. 1:55 AM: The patient now complains of return of some lower sternal chest pressure. Repeat electrocardiogram performed. 2:05 AM: Second electrocardiogram unremarkable. Patient states chest pressure has markedly decreased since laying down. Sublingual nitroglycerin ordered. 2:20 AM: Pain 1/10 after 1st NTG. 2:22 AM: Pain 0/10 after 2nd NTG. NTP ordered. Departure Departure Disposition Still a Patient Clinical Impression Primary Impression: Chest pain Qualifiers: Chest pain type: precordial pain Qualified Code: R07.2 - Precordial pain Secondary Impressions: Elevated troponin Condition STABLE Referrals Golden Martin MD (Family) ED Critical Care Critical Care No at 0801
--- NOTE | 2017-09-15 21:36 | Emergency Room Report ---
History of Present Illness Time Seen by 2130 Presenting Problem in Triage Pt arrived:Walked Presenting Problem:BEGAN FEELING LIGHTHEADED WITH DYSPNEA. CHEST PAIN BEGAN ABOUT 45 MINS AGO. PAIN UP HIS NECK. PT REPORTS PREVIOUS HX OF IN. Onset of symptoms date/time:09/15 or onset unknown for: Treatment Prior to Arrival: BUFFET ATTENDANT Provided by: Sepsis Risk Assessment: Temp: 99.4 B/P: 122/79 MAP: 93 Pulse: 103 Resp: 16 Recent fever? N Clinical Suspician of Infection? N Mental Status: 1 - Regular (Normal Baseline) Sepsis Risk:Low Sepsis Risk Have you (or family members/close friends) recently traveled outside the [place]? N If Yes, where/when: Have you had exposure to infectious disease within the past month? N TB? Other? Specify: Comment The patient complains of chest pain. He says that about an hour ago he was taking a bag of garbage into the trashcan, but not exerting himself, when he developed chest pain in his lower sternal area that radiated up into his neck. He says it feels like the discomfort you get when he swallowing air bubble. He says he got lightheaded, presyncopal, short of breath, but not diaphoretic or nauseated. He says his heart was racing. Symptoms are now gone. No recent hospitlizations, travel or surgery. He says he has a prior history of pericarditis and myocarditis in 1996 1997, when in the . He says that it was explained to him that his pericarditis and myocarditis were likely due to the immunization series he received to be in the . He says that they also told him he had "2 heart attacks". However, he says he did not have a cardiac cath, angioplasty, or stent placement. He has not had surgery. 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 He says he has seen Dr. Ramos for cardiac evaluation who tells him that his heart is fine and he is not on any treatment for his heart. He has also seen Dr. Miller. He says he has had some problems with his blood pressure since he had back surgery. He also has high cholesterol. He has a history of heart disease in his grandmother, but not in first-degree relatives. He is a former smoker. ALLERGIES Coded Allergies: Iodinated Contrast- Oral and IV Dye (Iodinated Contrast Media - IV Dye) ( Intermediate, I-ITCHING 06/26/16) hydromorphone (From DILAUDID) (Intermediate, I-ITCHING 06/26/16) Home Medications Active Scripts Gabapentin 600 MG PO TID #90 TAB Ref 2 Prov: 03/28/16 HYDROCODONE/ACETAMINOPHEN (Lortab 7.5-325 MG Tablet) 1 TAB PO QID #120 TAB Prov: 12/27/16 Reported Medications Carvedilol (Carvedilol 6.25MG) 6.25 MG PO BID OMEPRAZOLE MAGNESIUM (Prilosec 20MG) 20 MG PO BID CHOLECALCIFEROL (VITAMIN D3) (Vitamin D) 7,000 IUNITS PO DAILY Acetaminophen (Tylenol XS 500MG) 325 MG PO Q6HP PRN PAIN PAROXETINE HCL (Paxil) 20 MG PO DAILY Methocarbamol (Robaxin 750MG) 750 MG PO TID Diclofenac Sodium 75 MG PO BID LISINOPRIL (Lisinopril) 10 MG PO DAILY Lactobacillus Combo No.11 (Probiotic) 1 EACH PO DAILY Mirabegron (Myrbetriq) 25 MG PO DAILY NALOXEGOL OXALATE (Movantik) (Unknown Dose) PO DAILY History Medical History General CAD? Yes Angina: Yes IN: Yes Hypertension? No Hyperlipidemia? Yes CHF? No DVT? No PE? No COPD? No Asthma? Yes Anemia? No GERD? Yes Gastric ulcers? No GI Bleed? No Hernia? Yes Thyroid Problems? No Hypothyroidism? No CVA? No Seizures? Yes Diabetes? No Renal Insuffiency? No End Stage Renal Disease? No UTI? No Stones? Yes BPH? No GB Disease: No Nephritic Syndrome? No Asplenia? No Hepatitis? No Sickle Cell Disease? No Arthritis? Yes Migraines? Yes Cataracts? No Glaucoma? No MRSA? No HIV? No TB? No Anxiety? No Depression? Yes Cancer? No More? Yes Additional hx: MYOCARDITIS, BRONCHITIS DDD LUMBAR SPINE,COLITIS Immunization Hx Ped.Immunizations UTD No DT/Tetanus 1-4 YRS Surgical Hx Previous Surgery?Y CYST REMOVED FROM NOSE L4L5 SURGERY HAND SX Family History Family Hx Diabetes Yes Hypertension Yes Cancer Yes Social History Smoking Hx Smoker: Former Smoker Tobacco: No Packs/day N/A Are you/the child exposed to second-hand smoke: Yes Alcohol Alcohol: No Additionial History Additional History Review of records shows emergency department chest pain workups here in 2016 in 2014 that were negative. Review of Systems All Other Systems Reviewed and Negative Constitutional denies diaphoresis Respiratory shortness of breath Cardiovascular chest pain, denies syncope Physical Exam Vital Signs Vital Signs Date Time Temp Pulse Resp B/P Pulse O2 O2 Flow FiO2 Ox Delivery Rate 09/16 0304 86 09/16 0304 98 ROOM AIR 09/16 0250 97.9 86 18 108/69 98 ROOM AIR 09/16 0249 98.6 86 16 111/71 96 09/16 0221 88 14 104/58 96 09/16 0220 14 09/16 0215 14 09/16 0214 98.6 88 16 113/62 09/16 0205 81 12 112/75 98 09/15 2329 98.6 94 18 110/67 99 09/15 2228 102 20 116/79 97 09/15 2129 99.4 103 16 122/79 98 General Appearance normal appearance, WD/WN Eye Exam - bilateral eye normal exam, bilateral eye PERRL, bilateral eye EOMI Ear, Nose, Throat hearing grossly normal, normal ENT inspection Neck normal inspection, non-tender, supple, full range of motion Respiratory Status Yes: trachea midline, chest symmetrical, non tender chest. No: respiratory distress. Lung Sounds bilateral: normal breath sounds, lungs clear. Cardiovascular normal exam, regular rate/rhythm, no peripheral edema, no gallop, no JVD, no murmur, no rub, normal peripheral pulses Peripheral Pulses Pulses normal Yes Gastrointestinal normal bowel sounds, normal exam, non tender, soft, no organomegaly Extremities non-tender, normal range of motion, normal inspection Neurologic alert, therapeutic recreation specialist II-XII nml as tested, normal exam, oriented x 3 Mental status normal mood/affect Skin intact, normal color, warm/dry Medical Decision Making LABS/Meds/Orders Pt receiving controlled substance in ED? No Results/Orders Laboratory Tests 09/16/17 0025: Troponin I 0.07 H 09/15/172149: Troponin I < 0.02 09/15/172149: Sodium 143, Potassium 4.1, Chloride 107, Carbon Dioxide 25, BUN 12, Creatinine 1.0, Estimated Creat Clear 174, Estimated GFR (MDRD) 84, Glucose 115 H, Calcium 9.2, Total Bilirubin 0.3, AST 20, ALT 42, Alkaline Phosphatase 94, Total Protein 7.9, Albumin 3.8, Globulin 4.1 H, Albumin/Globulin Ratio 0.9 L, WBC 9.4, RBC 5.02, Hgb 14.3, Hct 42.2, MCV 84.0, RDW 13.3, Plt Count 375, MPV 6.7 L, Gran % 57.1, Gran # 5.4, Lymphocytes % 30.8, Monocytes % 6.4, Eosinophils % 4.9, Basophils % 0.7, Lymphocytes # 2.9, Monocytes # 0.6, Eosinophils # 0.5 H, Basophils # 0.1, PUBS MCHC 33.8, MCH 28.4 Current Medication Orders Sig/Maame Start time Last Medication Dose Route Stop Time Status Admin Aspirin 325 MG DAILY 09/16 900 UNV PO Carvedilol 6.25 MG BID 09/16 900 UNV PO Gabapentin 600 MG TID 09/16 900 UNV PO Hydrocodone Bitart/ 1 TAB DAILY 09/16 900 UNVr Acetaminophen PO Lisinopril 10 MG DAILY 09/16 900 UNV PO Pantoprazole Sodium 20 MG BID 09/16 900 UNV PO Paroxetine HCl 20 MG DAILY 09/16 900 UNV PO Nitroglycerin 1 IN Q6 09/16 0500 UNV TP Influenza Virus 0.5 ML PRN PRN 09/16 023 UNV Vaccine Quadrival IM Nicotine 21 MG DAILYP PRN 09/16 0230 UNV TD Nitroglycerin 1 IN ONCE ONE 09/16 0230 DC 09/16 TP 09/16 231 0225 Nitroglycerin 0.4 MG [id number] PRN 09/16 023 UNV SL Sodium Chloride 10 ML PRN PRN 09/16 0230 UNV IV Nitroglycerin 0 .STK-MED ONE 09/16 225 DC .ROUTE Nitroglycerin 0.4 MG [id number] PRN 09/16 0215 AC 09/16 SL 0220 Nitroglycerin 0 .STK-MED ONE 09/16 0209 DC SL Sodium Chloride 10 ML PRN PRN 09/15 2200 AC IV 09/16 2147 Aspirin 324 MG ONCE ONE 09/15 2145 DC 09/15 PO 09/15 Aspirin 0 .STK-MED ONE 09/15 2137 DC .ROUTE Orders Procedure Date/time Status DIET-NOTHING BY MOUTH 09/16 B Active TROPONIN I 09/16 1300 Active TROPONIN I 09/16 0900 Active TROPONIN I 09/16 0500 Complete ADMITTED PT IS ACTUALLY IN BED 09/16 0301 Active TROPONIN I 09/16 0022 Complete ADMIT PATIENT 09/16 UNK Active PULSE OXIMETRY REQUEST 09/16 UNK Active OXYGEN REQUEST 09/16 UNK Active VITAL SIGNS 09/16 UNK Active ADDICTION SOCIAL WORKER 09/16 UNK Active POM NURSE BUD HOSE ORDER 09/16 UNK Active IV SALINE LOCK 09/16 UNK Active CODE STATUS 09/16 UNK Active PATIENT ACTIVITY ORDER 09/16 UNK Active PHYSICIANS CONSULT 09/16 UNK Active SPECIALTY CLINIC PHYS CONSULT 09/16 UNK Active TROPONIN I 09/15 2257 Complete IV SALINE LOCK 09/15 2148 Active EXPLOSIVE TECHNICIAN 09/15 2148 Active ELECTROCARDIOGRAM REQUEST 09/15 2147 Active CHEST(2 VIEWS-NOT PORTABLE) 09/15 2147 Active EXPLOSIVE TECHNICIAN 09/15 2147 Active CBC WITH AUTO DIFF 09/15 2147 Complete CHEM 12 PROFILE 09/15 2147 Complete CM/EKG CM/EKG Comments EKG interpreted by Alexey Wood MD: Rhythm: sinus Rate: 102 [place]: normal Ectopy: none Conduction: normal ST Segment Changes: Early repolarization T Wave Changes: none Q Waves: none No evidence of acute ischemia or injury Prior electrocardiagrams reviewed. No change from prior tracings. EKG #2 interpreted by Alexey Wood MD: Rhythm: sinus Rate: 79 [place]: normal Ectopy: none Conduction: normal ST Segment Changes: Early repolarization T Wave Changes: none Q Waves: none No evidence of acute ischemia or injury XRAY/CT/US XRAY/CT/US XRAY chest Comment X-ray interpreted by Alexey Wood M.D.: atelectasis versus scars in the bases. Degenerative changes of thoracic spine with spurs. Progress - 11:30 PM: Remains asymptomatic, no chest pain. HR 88. I discussed continuing his workup with a second troponin, 3 hours after the first. He is reluctant to do this, he would rather be discharged, but he does consent. 1:45 AM: Second troponin increased to 0.07. The patient has not had any recurrence of his chest pain. He has had a few twinges of chest wall pain, that he has had previously from spurs in his back, only when he moves. No return of chest pressure. He would prefer that I call Dr. Miller, rather than Dr. Ramos. I spoke with Dr. Miller, who recommends admission. No further instructions. I discussed the case with Dr. Roth and he will admit to his service. 1:55 AM: The patient now complains of return of some lower sternal chest pressure. Repeat electrocardiogram performed. 2:05 AM: Second electrocardiogram unremarkable. Patient states chest pressure has markedly decreased since laying down. Sublingual nitroglycerin ordered. 2:20 AM: Pain 1/10 after 1st NTG. 2:22 AM: Pain 0/10 after 2nd NTG. NTP ordered. Departure Departure Disposition Still a Patient Clinical Impression Primary Impression: Chest pain Qualifiers: Chest pain type: precordial pain Qualified Code: R07.2 - Precordial pain Secondary Impressions: Elevated troponin Condition STABLE Referrals Golden Martin MD (Family) ED Critical Care Critical Care No at 0801
[2017-09-15] MEDS ORDERED: TYLENOL ES500 MG PO (21:39)
--- OUTSIDE RECORDS SUMMARY | 2017-09-15 21:40 | External Medical Summary Rpt | CCD ---
Author Author , JAKE JOSEPH Address Unknown Phone [email or web address] Care Team Providers Care Clinic Licensed Practical Nurse Name Role Phone [facility], Unavailable [facility]available [facility] Unavailable Unavailable [facility]OC[facility], [facility] Unavailable Unavailable [facility]ING [facility], [facility] Unavailable Unavailable EMER[facility]ENCY PH[facility], [facility], Unavailable Unavailable [facility] Purpose Continuity of Care Document - 04-12-2017 through 2016 Problems Code Diagnosis DOS Provider Status M549 DORSALGIA 08-12-2017 [facility] [id number] EPILEPSY 07-22-2017 [facility] INTRACT W/O STATUS EPILEPTICUS K01859 OTHER 07-22-2017 [facility]IG[facility] UNSPECIFIED EAR K219 GASTRO-ESOP 07-22-2017 [facility] DISEASE WITHOUT ESOPHAGITIS M1990 UNSPECIFIED 07-22-2017 [facility] OSTEOARTHRI TIS UNSPECIFIED SITE M545 LOW BACK 07-22-2017 [facility] R072 PRECORDIAL 07-22-2017 [facility] R0789 OTHER CHEST 07-22-2017 [facility] R079 CHEST PAIN 07-22-2017 [facility] R110 NAUSEA 07-22-2017 [facility] R42 DIZZINESS 07-22-2017 [facility] GIDDINESS [id number] PERSONAL 07-22-2017 [facility] HISTORY OF HOSPITAL URINARY CALCULI C29199 PERSONAL 07-22-2017 [facility] HISTORY OF HOSPITAL NICOTINE DEPENDENCE Z9089 ACQUIRED 07-22-2017 [facility] ABSENCE OF HOSPITAL OTHER ORGANS M5440 LUMBAGO 07-11-2017 [facility] [place] UNSPECIFIED SIDE Z8739 PERSONAL HX 07-11-2017 [facility] MUSCULOSKEL SYS&CONNECT V TISS K21.9 GASTRO-ESOP 04-12-2017 [facility] REFLUX DISEASE WITHOUT ESOPHAGITIS K29.50 UNSPECIFIED 04-12-2017 CHRONIC GASTRITIS WITHOUT BLEEDING K59.00 CONSTIPATIO 04-12-2017 N, UNSPECIFIED K64.1 SECOND 04-12-2017 [facility] HEMORRHO[facility] R10.31 RIGHT LOWER 04-12-2017 [facility] G40.909 Epilepsy, unspecified , not intractable , without status epilepticus H81.399 Other peripheral vertigo, unspecified ear M19.90 Unspecified osteoarthri tis, unspecified site M51.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
--- OUTSIDE RECORDS SUMMARY | 2017-09-15 21:40 | External Medical Summary Rpt | CCD ---
Author Author , JAKE JOSEPH Address Unknown Phone [email or web address] [employer]ed Care Team Providers Care Levee Superintendent Name Role Phone [facility], [facility]available [facility]available [facility] Unavailable Unavailable ASSOCIATES, [facility] Unavailable Unavailable IM[facility]ING [facility], [facility] Unavailable Unavailable EMERGENCY PHYS, [facility], Unavailable Unavailable [facility] Purpose Continuity of Care Document - 04-12-2017 through 2016 Problems Code Diagnosis DOS Provider Status M549 DORSALGIA 08-12-2017 [facility] [id number] EPILEPSY 07-22-2017 [facility] INTRACT W/O STATUS EPILEPTICUS U15479 OTHER 07-22-2017 [facility] UNSPECIFIED EAR K219 GASTRO-ESOP 07-22-2017 [facility] H RE[facility]UX [facility]PITAL DISEASE WITHOUT ESOPHAGITIS M1990 UNSPECIFIED 07-22-2017 [facility] OSTEOARTHRI TIS UNSPECIFIED SITE M545 LOW BACK 07-22-2017 [facility] R072 PRECORDIAL 07-22-2017 [facility] R0789 OTHER CHEST 07-22-2017 [facility] R079 CHEST PAIN 07-22-2017 [facility] R110 NAUSEA 07-22-2017 [facility] R42 DIZZINESS 07-22-2017 [facility] GIDDINESS C97928 PERSONAL 07-22-2017 [facility] HISTORY OF HOSPITAL URINARY CALCULI M06823 PERSONAL 07-22-2017 [facility] HISTORY OF HOSPITAL NICOTINE DEPENDENCE Z9089 ACQUIRED 07-22-2017 [facility] ABSENCE OF HOSPITAL OTHER ORGANS M5440 LUMBAGO [...] SKIN R42 Dizziness and giddiness Z79.899 Other assistant terminal manager (current) drug therapy Z87.442 Personal history of urinary calculi Z87.891 Personal history of nicotine dependence Z88.5 Allergy status to narcotic agent status Z90.89 Acquired absence of other organs Z91.041 Radiographi c dye allergy status Encounters Encounter Start End Date Code Location Performer Type Date [facility] [address]
--- OUTSIDE RECORDS SUMMARY | 2017-09-15 21:41 | External Medical Summary Rpt | CCD ---
Author Author , JAKE Organization JAKE Address Unknown Phone [email or web address] Care Team Providers Care Wet Wash Assembler Name Role Phone [facility], Unavailable Unavailable [facility] Unavailable Unavailable ASSOCIATES, [facility] Unavailable Unavailable IM[facility]ING [facility], [facility] Unavailable Unavailable [facility], [facility], Unavailable Unavailable [facility] Purpose Continuity of Care Document - 07-11-2017 through 2016 Problems Code Diagnosis DOS Provider Status M549 DORSALGIA 08-12-2017 [facility] [id number] EPILEPSY 07-22-2017 [facility] INTRACT W/O STATUS EPILEPTICUS X30547 OTHER 07-22-2017 [facility] VERTIGO UNSPECIFIED EAR K219 GASTRO-ESOP 07-22-2017 [facility] REFLUX HOSPITAL DISEASE WITHOUT ESOPHAGITIS M1990 UNSPECIFIED 07-22-2017 [facility] OSTEOARTHRI TIS UNSPECIFIED SITE M545 LOW BACK 07-22-2017 [facility] R072 PRECORDIAL 07-22-2017 [facility] R0789 OTHER CHEST 07-22-2017 [facility] R079 CHEST PAIN 07-22-2017 [facility] R110 NAUSEA 07-22-2017 [facility] R42 DIZZINESS 07-22-2017 [facility] GIDDINESS S80151 PERSONAL 07-22-2017 [facility] HISTORY OF HOSPITAL URINARY CALCULI O88361 PERSONAL 07-22-2017 [facility] HISTORY OF HOSPITAL NICOTINE DEPENDENCE Z9089 ACQUIRED 07-22-2017 [facility] ABSENCE OF HOSPITAL OTHER ORGANS M5440 LUMBAGO 07-11-2017 [facility] UNSPECIFIED SIDE Z8739 PERSONAL HX 07-11-2017 [facility] MUSCULOSKEL SYS&CONNECT V TISS Encounters Encounter Start End Date Code Location Performer Type Date [facility] [address] OUTPATI T
--- OUTSIDE RECORDS SUMMARY | 2017-09-15 21:41 | External Medical Summary Rpt | CCD ---
Demographics Preferred Language Mohawk Marital Status Unknown Cheondoism Affiliation Unknown Race Unknown Ethnic Group Unknown Author Author JAKE Address Unknown Phone Immunization No patient found.
--- OUTSIDE RECORDS SUMMARY | 2017-09-15 21:41 | External Medical Summary Rpt | CCD ---
Author Author , JAKE Organization JAKE Address Unknown Phone [email or web address] Care Team Providers Care Medical Library Assistant Name Role Phone [facility] Unavailable Unavailable [facility] Unavailable Unavailable ASSOCIATES, [facility] Unavailable Unavailable IM[facility]ING [facility], [facility] Unavailable Unavailable [facility], [facility], Unavailable Unavailable [facility] Purpose Continuity of Care Document - 07-11-2017 through 2016 Problems Code Diagnosis DOS Provider Status M549 DORSALGIA 08-12-2017 [facility] [id number] EPILEPSY 07-22-2017 [facility] INTRACT W/O STATUS EPILEPTICUS V15541 OTHER 07-22-2017 [facility] VERTIG[facility] UNSPECIFIED EAR K219 GASTRO-ESOP 07-22-2017 [facility] REFLUX HOSPITAL DISEASE WITHOUT ESOPHAGITIS M1990 UNSPECIFIED 07-22-2017 [facility] OSTEOARTHRI TIS UNSPECIFIED SITE M545 LOW BACK 07-22-2017 [facility] R072 PRECORDIAL 07-22-2017 [facility] R0789 OTHER CHEST 07-22-2017 [facility] R079 CHEST PAIN 07-22-2017 [facility] R110 NAUSEA 07-22-2017 [facility] R42 DIZZINESS 07-22-2017 [facility] GIDDINESS Z15827 PERSONAL 07-22-2017 [facility] HISTORY OF HOSPITAL URINARY CALCULI N44282 PERSONAL 07-22-2017 [facility] HISTORY OF HOSPITAL NICOTINE DEPENDENCE Z9089 ACQUIRED 07-22-2017 [facility] ABSENCE OF HOSPITAL OTHER ORGANS M5440 LUMBAGO 07-11-2017 [facility] UNSPECIFIED SIDE Z8739 PERSONAL HX 07-11-2017 [facility] MUSCULOSKEL SYS&CONNECT V TISS Encounters Encounter Start End Date Code Location Performer Type Date HOSPITAL [address] OUTPATI T
--- OUTSIDE RECORDS SUMMARY | 2017-09-15 21:41 | External Medical Summary Rpt | CCD ---
Demographics Preferred Language French Marital Status Unknown Rastafarian Affiliation Unknown Race Unknown Ethnic Group Unknown Author Author JAKE Address Unknown Phone Immunization No patient found.
[2017-09-15 22:03] LABS: HEMOGLOBIN 14.3 g/dL (14.1-18.0); LYMPH # 2.9 K/mm3 (0.7-4.5); LYMPH % 30.8 % (10-50)
[2017-09-16] VITALS (7 sets, daily range): BP systolic 89–141; BP diastolic 42–75
--- OUTSIDE RECORDS SUMMARY | 2017-09-16 02:04 | External Medical Summary Rpt | CCD ---
Author Author , JAKE JOSEPH Address Unknown Phone [email or web address] Care Team Providers Care Home Care Physical Therapist Name Role Phone [facility], Unavailable [facility]available [facility] Unavailable Unavailable ASSOCIATES, [facility] Unavailable Unavailable IM[facility]ING [facility], [facility] Unavailable Unavailable [facility]ERGENCY PH[facility], [facility], Unavailable Unavailable [facility] Purpose Continuity of Care Document - 04-12-2017 through 2016 Problems Code Diagnosis DOS Provider Status M549 DORSALGIA 08-12-2017 [facility] [id number] EPILEPSY 07-22-2017 [facility] INTRACT W/O STATUS EPILEPTICUS O72561 OTHER 07-22-2017 [facility] VERTIGO UNSPECIFIED EAR K219 GASTRO-ESOP 07-22-2017 [facility] H REFLUX HOSPITAL DISEASE WITHOUT ESOPHAGITIS M1990 UNSPECIFIED 07-22-2017 [facility] OSTEOARTHRI TIS UNSPECIFIED SITE M545 LOW BACK 07-22-2017 [facility] R072 PRECORDIAL 07-22-2017 [facility] R0789 OTHER CHEST 07-22-2017 [facility] R079 CHEST PAIN 07-22-2017 [facility] R110 NAUSEA 07-22-2017 [facility] R42 DIZZINESS 07-22-2017 [facility] GIDDINESS [id number] PERSONAL 07-22-2017 [facility] HISTORY OF HOSPITAL URINARY CALCULI N07165 PERSONAL 07-22-2017 [facility] HISTORY OF HOSPITAL NICOTINE DEPENDENCE Z9089 ACQUIRED 07-22-2017 [facility] ABSENCE OF HOSPITAL OTHER ORGANS M5440 [...] SKIN R42 Dizziness and giddiness Z79.899 Other regional intermodal truck driver (current) drug therapy Z87.442 Personal history of urinary calculi Z87.891 Personal history of nicotine dependence Z88.5 Allergy status to narcotic agent status Z90.89 Acquired absence of other organs Z91.041 Radiographi c dye allergy status Results Labs Lab Lab Date Result Refere Interp Status Commen Order Detail nces retati t Range on Serum or plasma troponin i.cardiac measu (09-16-2017 00:25) Serum = 0.07 0.00-0. complet or 017 ng/mL 06 ed plasma 00:25 troponi n i.cardi ac measu Comment: 0.04 - 0.49 IS AN INDETERMINANT ZONE Comment: And can be consistent with the following diseases: Comment: Comment: Trauma Critically ill patients Sheikh >30% TBSA Comment: CHF Hypothyroidism Amyloidosis Comment: Hypertension Myocarditis Sepsis Comment: Hypotension Rhabdomyolysis Vital exhaust. Comment: Postop surgery Pulmonary embolism CVA Comment: Renal failure Acute neurological disease Atrial fib. CBC w auto diff (09-15-2017 21:50) Blood = 9.4 4.8-10. complet leukocy 017 K/MM3 8 ed joseline 21:50 count (number /volume ) Automat = 13.3 11.5-17 complet ed 017 % .5 ed erythro 21:50 cyte distrib ution width Red = 5.02 4.6-6.2 complet blood 017 M/mm3 ed cell 21:50 count Blood = 375 142-424 complet platele 017 K/mm3 ed t count 21:50 Automat 2 = 6.7 7.4-10. complet ed 017 fl 4 ed blood 21:50 platele t mean volume clem [place] % = 6.4 % 1.7-9.3 complet 017 ed 21:50 Absolut 2 = 0.6 0.1-1.0 complet e 017 K/mm3 ed monocyt 21:50 e count Automat = 84.0 82.2-97 complet ed 017 fl .8 ed erythro 21:50 cyte mean corpusc ular v Automat = 33.8 31.8-35 complet ed 017 g/dl .4 ed erythro 21:50 cyte mean corpusc ular h Mean = 28.4 27-31.2 complet corpusc 017 pg ed ular 21:50 hemoglo bin (M[facility]) determ Lymphoc = 30.8 10-50 complet yte 017 % ed count, 21:50 blood, automat ed Absolut = 2.9 0.7-4.5 complet e 017 K/mm3 ed lymphoc 21:50 yte count Blood = 14.3 14.1-18 complet hemoglo 017 g/dL .0 ed bin 21:50 measure ment (mass/v olum Blood = 42.2 42.0-52 complet hematoc 017 % .0 ed rit 21:50 (volume fractio n) Granulo = 57.1 37.0-80 complet cyte 017 % .0 ed percent 21:50 age Blood = 5.4 1.3-8.0 complet granulo 017 K/mm3 ed cytes 21:50 automat ed count (numb Automat = 4.9 % 0.1-12. complet ed 017 0 ed blood 21:50 eosinop hils/10 0 leukocy t Automat 2 = 0.5 0.0-0.4 complet ed 017 K/mm3 ed blood 21:50 eosinop hil count Baso % = 0.7 % 0.1-2.0 complet 017 ed 21:50 Automat 2 = 0.1 0-0.2 complet ed 017 K/MM3 ed blood 21:50 basophi l count (count/ vo Encounters Encounter Start End Date Code Location Performer Type Date [facility] [address] [facility]
--- OUTSIDE RECORDS SUMMARY | 2017-09-16 02:04 | External Medical Summary Rpt | CCD ---
Author Author , JAKE JOSEPH Address Unknown Phone [email or web address] Care Team Providers Care Traveling Sales Representative Name Role Phone [facility], Un[facility] Unavailable Unavailable ASSOCIATES, [facility] Unavailable [facility]available [facility]ING [facility], [facility] Unavailable Unavailable EMERGENCY PHYS, [facility], Unavailable Unavailable [facility] Purpose Continuity of Care Document - 04-12-2017 through 2016 Problems Code Diagnosis DOS Provider Status M549 DORSALGIA 08-12-2017 [place] [facility] [id number] EPILEPSY 07-22-2017 [facility] INTRACT W/O STATUS EPILEPTICUS W63460 OTHER 07-22-2017 [facility] VERTIGO UNSPECIFIED EAR K219 GASTRO-ESOP 07-22-2017 [facility] H RE[facility]UX [facility]PITAL DISEASE WITHOUT ESOPHAGITIS M1990 UNSPECIFIED 07-22-2017 [facility] OSTEOARTHRI TIS UNSPECIFIED SITE M545 LOW BACK 07-22-2017 [facility] R072 PRECORDIAL 07-22-2017 [facility] R0789 OTHER CHEST 07-22-2017 [facility] R079 CHEST PAIN 07-22-2017 [facility] R110 NAUSEA 07-22-2017 [facility] R42 DIZZINESS 07-22-2017 [facility] GIDDINESS [id number] PERSONAL 07-22-2017 [facility] HISTORY OF HOSPITAL URINARY CALCULI O90171 PERSONAL 07-22-2017 [facility] HISTORY OF HOSPITAL NICOTINE DEPENDENCE Z9089 ACQUIRED 07-22-2017 [facility] ABSENCE OF HOSPITAL OTHER ORGANS M5440 [...] SKIN R42 Dizziness and giddiness Z79.899 Other adjunct faculty for medical terminology (current) drug therapy Z87.442 Personal history of [...] blood 21:50 platele t mean volume clem [place] % = 6.4 % 1.7-9.3 complet 017 [...] End Date Code Location Performer Type Date [facility] [address] [facility]
--- OUTSIDE RECORDS SUMMARY | 2017-09-16 02:05 | External Medical Summary Rpt | CCD ---
Author Author , JAKE Organization JKAE Address Unknown Phone [email or web address] Care Team Providers Care Silverware Etcher Name Role Phone [facility], [facility]available Unavailable [facility] Unavailable Unavailable ASSOCIATES, [facility] Unavailable Unavailable [facility]ING [facility], [facility] Unavailable [facility]available [facility], [facility], Unavailable Unavailable [facility] Purpose Continuity of Care Document - 07-11-2017 through 2016 Problems Code Diagnosis DOS Provider Status M549 DORSALGIA 08-12-2017 [facility] [facility] [id number] EPILEPSY 07-22-2017 [facility] INTRACT W/O STATUS EPILEPTICUS D44632 OTHER 07-22-2017 [facility] VERTIGO UNSPECIFIED EAR K219 GASTRO-ESOP 07-22-2017 [facility] REFLUX HOSPITAL DISEASE WITHOUT ESOPHAGITIS M1990 UNSPECIFIED 07-22-2017 [facility] OSTEOARTHRI TIS UNSPECIFIED SITE M545 LOW BACK 07-22-2017 [facility] R072 PRECORDIAL 07-22-2017 [facility] R0789 OTHER CHEST 07-22-2017 [facility] R079 CHEST PAIN 07-22-2017 [facility] R110 NAUSEA 07-22-2017 [facility] R42 DIZZINESS 07-22-2017 [facility] GIDDINESS H90144 PERSONAL 07-22-2017 [facility] HISTORY OF HOSPITAL URINARY CALCULI X50273 PERSONAL 07-22-2017 [facility] HISTORY OF HOSPITAL NICOTINE DEPENDENCE Z9089 ACQUIRED 07-22-2017 [facility] ABSENCE OF HOSPITAL OTHER ORGANS M5440 LUMBAGO 07-11-2017 [facility] [place] UNSPECIFIED SIDE Z8739 PERSONAL HX 07-11-2017 [facility] DZ [facility] MUSCULOSKEL SYS&CONNECT V TISS Encounters Encounter Start End Date Code Location Performer Type Date HOSPITAL [address] OUTPATI T
--- OUTSIDE RECORDS SUMMARY | 2017-09-16 02:05 | External Medical Summary Rpt | CCD ---
Author Author , JAKE Organization JAKE Address Unknown Phone [email or web address] Care Team Providers Care Echo Vascular Tech Name Role Phone [facility], Unavailable Unavailable [facility] Unavailable Unavailable ASSOCIATES, [facility] Unavailable Unavailable IMAGING ASS, [facility] Unavailable Unavailable [facility], [facility], Unavailable Unavailable [facility] Purpose Continuity of Care Document - 07-11-2017 through 2016 Problems Code Diagnosis DOS Provider Status M549 DORSALGIA 08-12-2017 [place] [facility] S38404 EPILEPSY 07-22-2017 [facility] INTRACT W/O STATUS EPILEPTICUS [id number] OTHER 07-22-2017 [facility] VERTIGO UNSPECIFIED EAR K219 GASTRO-ESOP 07-22-2017 [facility] REFLUX HOSPITAL DISEASE WITHOUT ESOPHAGITIS M1990 UNSPECIFIED 07-22-2017 [facility] OSTEOARTHRI TIS UNSPECIFIED SITE M545 LOW BACK 07-22-2017 [facility] R072 PRECORDIAL 07-22-2017 [facility] R0789 OTHER CHEST 07-22-2017 [facility] R079 CHEST PAIN 07-22-2017 [facility] R110 NAUSEA 07-22-2017 [facility] R42 DIZZINESS 07-22-2017 [facility] GIDDINESS G75751 PERSONAL 07-22-2017 [facility] HISTORY OF HOSPITAL URINARY CALCULI [id number] PERSONAL 07-22-2017 [facility] HISTORY OF HOSPITAL NICOTINE DEPENDENCE Z9089 ACQUIRED 07-22-2017 [facility] ABSENCE OF HOSPITAL OTHER ORGANS M5440 LUMBAGO 07-11-2017 [facility] [place] UNSPECIFIED SIDE Z8739 PERSONAL HX 07-11-2017 [facility] MUSCULOSKEL SYS&CONNECT V TISS Encounters Encounter Start End Date Code Location Performer Type Date HOSPITAL [address] OUTPATI T
--- OUTSIDE RECORDS SUMMARY | 2017-09-16 02:05 | External Medical Summary Rpt | CCD ---
Demographics Preferred Language Setswana Marital Status Unknown Worship Affiliation Unknown Race Unknown Ethnic Group Unknown Author Author JAKE Address Unknown Phone Immunization No patient found.
--- OUTSIDE RECORDS SUMMARY | 2017-09-16 02:05 | External Medical Summary Rpt | CCD ---
Demographics Preferred Language Occitan Marital Status Unknown Quaker Affiliation Unknown Race Unknown Ethnic Group Unknown Author Author JAKE Address Unknown Phone Immunization No patient found.
--- NOTE | 2017-09-16 08:11 | RADIOLOGY REPORT PS360 ---
CHEST(2 VIEWS-NOT PORTABLE) INDICATION: S pain COMPARISON: PA and lateral chest 10/11/2015 FINDINGS: The lung dawkins are well expanded and appear clear of infiltrate. The cardiomediastinal silhouette and vascularity are normal. The costophrenic angles are clear. The bony thorax is normal. IMPRESSION: Normal chest.
--- NOTE | 2017-09-16 09:14 | HISTORY AND PHYSICAL REPORT ---
History and Physical (FCA) Date of admission: 09/16/17 Chief complaint: Chest pain History: History of Present Illness: This 36-year-old white male presented in the emergency room at [facility]. He was carried out the garbage and he experienced some chest pain. The pain was in the epigastrium going up the chest and radiating to the neck. He felt that his heart rate was elevated during this period of time. He felt some shortness of breath. During his time in the emergency room his troponin went from 0.0 to 2.07. He was admitted for observation and possible cardiac catheterization. He does have a cardiac history. In 1996 during the time he was in the he had problems with pericarditis and myocarditis. There was some question of whether he had a myocardial infarction. However, he never had a cardiac catheterization. He has been seen by Dr. Estrellita Yanes but did not have a catheterization or treadmill test. He takes carvedilol but does not have a clear history for hypertension. He does not have a strong family history for her disease. His father is 58 years old however and does have angina. Maternal grandmother has diabetes. Past Medical History: Medical History: CAD? No (but unclear) Angina: Yes SC: Yes Hypertension? No (but unclear) Hyperlipidemia? Yes CHF? No DVT? No PE? No COPD? No Asthma? Yes (childhood) Anemia? No GERD? Yes (hiatal hernia) Gastric ulcers? No GI Bleed? No Hernia? Yes (hiatal) Thyroid Problems? No Hypothyroidism? No CVA? No Seizures? Yes (childhood) Diabetes? No Renal Insuffiency? No UTI? No Stones? Yes (none recent, 7mm in right) BPH? No GB Disease: No Nephritic Syndrome? No Asplenia? No Hepatitis? No Sickle Cell Disease? No Arthritis? Yes Migraines? Yes Cataracts? No Glaucoma? No MRSA? No HIV? No TB? No Anxiety? No Depression? Yes Cancer? No More? Yes Additional hx: 1996 MYOCARDITIS and PERICARDITIS BRONCHITIS DDD LUMBAR SPINE WITH ODZIPUITA27/15/2014,Dr. Lopez, 11/2014 Dr. Lopez, Spinal fusion Dr. Shaikh 08/2015 COLITIS Additional medical history: He is followed in the pain clinic at [facility]. He takes 1 Andes 7.5/325 daily. Surgical history: Previous Surgery?Y 1. CYST REMOVED FROM NOSE 2. Back surgeries as described above 3. 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 Medications: Active Scripts Gabapentin 600 MG PO TID #90 TAB Ref 2 Prov: 03/28/16 HYDROCODONE/ACETAMINOPHEN (Lortab 7.5-325 MG Tablet) 1 TAB PO QID #120 TAB Prov: 12/27/16 Reported Medications Carvedilol (Carvedilol 6.25MG) 6.25 MG PO BID OMEPRAZOLE MAGNESIUM (Prilosec 20MG) 20 MG PO BID CHOLECALCIFEROL (VITAMIN D3) (Vitamin D) 7,000 IUNITS PO DAILY Acetaminophen (Tylenol XS 500MG) 325 MG PO Q6HP PRN PAIN PAROXETINE HCL (Paxil) 20 MG PO DAILY Methocarbamol (Robaxin 750MG) 750 MG PO TID Diclofenac Sodium 75 MG PO BID LISINOPRIL (Lisinopril) 10 MG PO DAILY Lactobacillus Combo No.11 (Probiotic) 1 EACH PO DAILY Mirabegron (Myrbetriq) 25 MG PO DAILY NALOXEGOL OXALATE (Movantik) (Unknown Dose) PO DAILY Allergies: Coded Allergies: Iodinated Contrast- Oral and IV Dye (Iodinated Contrast Media - IV Dye) ( Intermediate, I-ITCHING 06/26/16) hydromorphone (From DILAUDID) (Intermediate, I-ITCHING 06/26/16) Family History: Family history: Postive for: CAD (father), DM (maternal grandmother). Social History: Smoking Hx Tobacco: No Smoker: Former Smoker (as teenager) Type: Cigarettes Packs/day: < 1 Pack Are you exposed to second hand Yes Alcohol: Alcohol: Yes (occasional bourbon) How much do you drink Less Than One Drink A Day For how long Longer Than 5 Years When was your last drink Greater Than 72 Hours Ago Hx of Drug Use: Drug Use? No Patien't marital status is: Patient's support system is: good Patient's occupation: Disabled due to the back problems Review of Systems: Patient unresponsive? No Constitutional No: chills, fatigue, malaise, weak, recent weight loss. ENT No: ear ache, nose bleed, ear drainage, hearing loss, mouth pain, nasal congestion, ear ringing, sinus problems, sore throat, throat swelling, tongue pain, tongue swelling, toothache, voice change. Cardiovascular Positive for: chest pain, palpitations. Respiratory Positive for: dyspnea on exertion. No: productive cough (sputum), wheezing. GI Positive for: GERD, hernia. No: dysphagia, hematemeis, nausea. Skin No: abrasions, itching, rash. Neurological Positive for: dizziness. No: change in LOC, bladder dysfunction, bowel dysfunction, confusion, headache. Immune/allergy Positive for: allergy (Dilaudid and x-ray dye). Eyes No: blurry vision, eye pain. Musculoskeletal Positive for: lumbar pain, myalgias. Psychiatric No: agitation, confused, change in mental status. Physical Exam: Vital signs: 1ST Vital Signs Result Date Time Pulse Ox 98 09/15 2129 B/P 122/79 09/15 2129 Temp 99.4 09/15 2129 Pulse 103 09/15 2129 Resp 16 09/15 2129 O2 Delivery ROOM AIR 09/16 025 O2 Flow Rate 2 09/16 0345 Exam: General appearance: normal appearance, alert, no acute distress Eyes: anicteric, conjunctiva clear, PERRLA ENT: mucous membranes moist Neck: normal inspection Cardiovascular: no ectopics, normal sinus rhythm, no murmur Respiratory: aerating well, clear to auscultation, no respiratory distress ABD: soft, no tenderness, no guarding, no organomegaly, obese Genitourinary: normal voiding & quantity Extremities: normal exam, no peripheral edema Musculoskeletal: normal exam Skin: normal exam, dry, intact, normal color Neuro: normal exam, alert, oriented, speech clear Lab data: Labs: Laboratory Tests 09/16/17 0500: Troponin I 0.03 09/16/17 0025: Troponin I 0.07 H 09/15/172149: Troponin I < 0.02 09/15/172149: Sodium 143, Potassium 4.1, Chloride 107, Carbon Dioxide 25, BUN 12, Creatinine 1.0, Estimated Creat Clear 174, Estimated GFR (MDRD) 84, Glucose 115 H, Calcium 9.2, Total Bilirubin 0.3, AST 20, ALT 42, Alkaline Phosphatase 94, Total Protein 7.9, Albumin 3.8, Globulin 4.1 H, Albumin/Globulin Ratio 0.9 L, WBC 9.4, RBC 5.02, Hgb 14.3, Hct 42.2, MCV 84.0, RDW 13.3, Plt Count 375, MPV 6.7 L, Gran % 57.1, Gran # 5.4, Lymphocytes % 30.8, Monocytes % 6.4, Eosinophils % 4.9, Basophils % 0.7, Lymphocytes # 2.9, Monocytes # 0.6, Eosinophils # 0.5 H, Basophils # 0.1, PUBS MCHC 33.8, MCH 28.4 Diagnosis(es): 1. Elevated troponin 2. Lumbar disc disease with radiculopathy 3. Chest pain 4. GERD (gastroesophageal reflux disease) 5. H/O pericarditis Plan: Cardiology consult at 0913
[2017-09-16] MEDS ORDERED: HYDROCODONE BIT1 T39 PO (10:06)
[2017-09-17] VITALS (8 sets, daily range): BP systolic 113–143; BP diastolic 63–92
--- NOTE | 2017-09-17 10:40 | PHARMACY CLINIC NOTE ---
Patient Demographics Patient Demographics Admission date: 09/16/17 Date: 09/17/17 Time: 1039 Allergies Coded Allergies: Iodinated Contrast- Oral and IV Dye (Iodinated Contrast Media - IV Dye) ( Intermediate, I-ITCHING 06/26/16) hydromorphone (From DILAUDID) (Intermediate, I-ITCHING 06/26/16) HEIGHT- FT: 6 IN: 0.00 K.134 VTE General Information Disclaimer The following section includes nursing documentation that has been pulled in for pharmacy review. Patient's VTE score: 1 Patient's VTE Risk: VERY LOW RISK Clinical trial participant? No VTE prophylaxis NQF [id number] VTE prophylaxis ordered? Yes Type of prophylaxis/treatment: BUD at 1038
--- NOTE | 2017-09-17 14:39 | ACUTE CARE PROGRESS NOTE (QUA) ---
See Addendum Progress Notes Subjective Date 09/17/17 Time 1436 Note He remains stable. He complains of some back pain. He asks about a lidocaine patch. Objective Findings Last VS-Temp:97.5 B/P:127/63 Pulse:80 Resp:18 SaO2:98 ROOM AIR Last weight lbs:260 oz:7 K.134 Method:Bed Scales Exam General appearance: alert, no acute distress Eyes: anicteric, PERRLA ENT: mucous membranes moist Cardiovascular: regular rate & rhythm Respiratory: clear to auscultation, good air movement ABD: soft, no tenderness Extremities: no peripheral edema Assessment/Plan Problem List 1. Elevated troponin 2. Lumbar disc disease with radiculopathy 3. Chest pain 4. GERD (gastroesophageal reflux disease) 5. H/O pericarditis Patient condition Stable Plan: I will contact Dr. Miller regarding disposition. Possible cath in the morning. This inpt stay is expected to cross 2 MNs from start of care Yes at 1432
[2017-09-18] VITALS (19 sets, daily range): BP systolic 99–132; BP diastolic 54–83
--- NOTE | 2017-09-18 08:43 | ACUTE CARE PROGRESS NOTE (QUA) ---
See Addendum Progress Notes Subjective Date 09/18/17 Time 0730 Note no further CP; denies SOB; ate without problems yesterday; has ambulated in the room; voiding without difficulty Objective Findings Vital Signs Date Time Temp Pulse Resp B/P Pulse O2 O2 Flow FiO2 Ox Delivery Rate 09/18 0742 97.4 80 20 107/68 95 ROOM AIR 09/18 0351 97.9 84 16 100/54 96 ROOM AIR 09/18 0016 98.0 95 16 132/81 98 ROOM AIR 09/17 1950 98.4 99 16 125/75 100 09/17 1936 98.4 99 16 125/75 100 ROOM AIR 09/17 1600 98.0 86 18 125/75 97 ROOM AIR 09/17 1144 97.5 80 18 127/63 98 ROOM AIR 09/17 0916 97.5 78 18 113/69 97 09/17 0909 18 Current Medications Acetaminophen 0 .STK-MED ONE PO (DC) Acetaminophen 0 .STK-MED ONE PO (DC) Acetaminophen 650 MG Q4HP PRN PO Aspirin 325 MG DAILY PO Carvedilol 6.25 MG BID PO Gabapentin 600 MG TID PO Hydrocodone Bitart/Acetaminophen 1 TAB DAILY PO (r) Lisinopril 10 MG DAILY PO Pantoprazole Sodium 40 MG BID PO Paroxetine HCl 20 MG DAILY PO Nitroglycerin 1 IN Q6 TP Influenza Virus Vaccine Quadrival 0.5 ML PRN PRN IM Nicotine 21 MG DAILYP PRN TD Sodium Chloride 10 ML PRN PRN IV Nitroglycerin 0.4 MG [id number] PRN SL 09/17 1500 09/17 2300 09/18 0700 Intake Total 750 Output Total Balance 750 Intake, Oral 750 Output, Stool Last VS-Temp:97.4 B/P:107/68 Pulse:80 Resp:20 SaO2:95 ROOM AIR Last weight lbs:260 oz:7 K.134 Method:Bed Scales Exam General appearance: alert, no acute distress, well-developed, well-nourished, awakened for exam Cardiovascular: regular rate & rhythm Respiratory: clear to auscultation (bilat anterior and posterior) ABD: soft, no tenderness, bowel sounds present Extremities: no peripheral edema, no calf tenderness Neuro: alert, oriented, speech clear Assessment/Plan Problem List 1. Elevated troponin 2. Lumbar disc disease with radiculopathy 3. Chest pain 4. GERD (gastroesophageal reflux disease) 5. H/O pericarditis Plan: continue current care, cardiology to see pt this AM This inpt stay is expected to cross 2 MNs from start of care Yes at 0843 at 0831
--- NOTE | 2017-09-18 10:41 | CONSULT NOTE ---
Standard Demographics Patient Demo Date of Consultation: 09/18/17 Referring Provider: Clyde Roth MD Reason for Consultation: Chest pain, Elevated troponin PRIMARY DIAGNOSIS: CHEST PAIN; ELEVATED TROPONIN Problem list Problem list: 1. Hypertension 2. Obesity 3. History of myocarditis/pericarditis at age 17 in the . This occurred after receiving multiple vaccinations in the . Reportedly treated with 2 injections into the heart per patient. 4. Hyperlipidemia 5. Family history coronary disease in his dad who is a smoker. 6. Chronic back pain with bone spur in the thoracic area and history of 2 surgeries to the L4-L5 area with some peripheral neuropathy intermittently. History of present illness: History of present illness: 36-year-old white male admitted over the weekend for chest pain. Patient was at home Monday evening when he developed sudden onset of epigastric pressure and discomfort that radiated up through the neck bilaterally. Symptoms of were not associated with significant shortness of breath or diaphoresis. He did have some nausea and did note brief discomfort improvement after belching. Symptoms last for about 45 minutes at which time he was in the emergency department and received nitroglycerin sublingual with resolution of symptoms. He has had no further episodes of chest discomfort during his hospitalization. His initial cardiac troponin was normal but his second troponin returned elevated with 3 subsequent normal troponins since then. Patient has an unusual cardiac history with history of myocarditis/pericarditis about 20 years ago. He denies having had a cardiac catheterization. Cardiology consulted for evaluation and recommendations. Patient's electrocardiogram is sinus with scooping ST elevation noted in the inferior and anterolateral leads, possible early repolarization abnormality. Past Medical History: General: Hypertension No (but unclear) CVA No Seizures Yes (childhood) TB No COPD No Asthma Yes (childhood) Diabetes No Angina Yes OK Yes Hyperlipidemia Yes Urinary Yes Cancer No Rheumatic H.D. No Ulcers No MRSA No GB Disease No Other MYOCARDITIS & PERICARDITI Additional hx 1996 MYOCARDITIS and PERICARDITIS BRONCHITIS DDD LUMBAR SPINE WITH [id number],Dr. Lopez, 11/2014 Dr. Lopez, Spinal fusion Dr. Shaikh 08/2015 COLITIS Past Surgical HX: Previous Surgery?Y CYST REMOVED FROM NOSE L4L5 SURGERY HAND SX Allergies Coded Allergies: Iodinated Contrast- Oral and IV Dye (Iodinated Contrast Media - IV Dye) ( Intermediate, I-ITCHING 06/26/16) hydromorphone (From DILAUDID) (Intermediate, I-ITCHING 06/26/16) Home medications: Active Scripts Gabapentin 600 MG PO TID #90 TAB Ref 2 Prov: 03/28/16 Reported Medications Omeprazole (Omeprazole 40MG) 40 MG PO DAILY CHOLECALCIFEROL (VITAMIN D3) (Vitamin D) 7,000 UNITS PO DAILY NALOXEGOL OXALATE (Movantik) 25 MG PO QAM HYDROCODONE/ACETAMINOPHEN (Hydrocodon-Acetaminoph 7.5-325) 1 TAB PO DAILY Carvedilol (Carvedilol 6.25MG) 6.25 MG PO BID Acetaminophen (Tylenol XS 500MG) 325 MG PO Q6HP PRN PAIN PAROXETINE HCL (Paxil) 20 MG PO DAILY Methocarbamol (Robaxin 750MG) 750 MG PO TID Diclofenac Sodium 75 MG PO BID LISINOPRIL (Lisinopril) 10 MG PO DAILY Lactobacillus Combo No.11 (Probiotic) 1 EACH PO DAILY Current Medications: Current Medications Diphenhydramine HCl 50 MG ONCE ONE IV (UNV) Famotidine 20 MG ONCE ONE IV (UNV) Methylprednisolone Sodium Succinate 125 MG ONCE ONE IV (UNV) Sodium Chloride 8 ML ONCE ONE IV (UNV) Hydrocodone Bitart/Acetaminophen 0 .STK-MED ONE PO (DCr) Fentanyl Citrate 25 MCG Q3MINP PRN IV Fentanyl Citrate 50 MCG Q3MINP PRN IV Flumazenil 0.2 MG PRN PRN IV Heparin Sodium (Beef Lung) 5,000 UNITS PRN PRN IV Heparin Sodium/Sodium Chloride 3,000 UNITS PRN PRN IV Lidocaine HCl 20 ML ONCE ONE IJ (DC) Midazolam HCl 1 MG Q3MINP PRN IV Midazolam HCl 1 MG Q3MINP PRN IV Naloxone HCl 0.4 MG [id number] PRN IV Nitroglycerin 800 MCG PRN PRN IV Verapamil HCl 5 MG PRN PRN IV Acetaminophen 0 .STK-MED ONE PO (DC) Acetaminophen 0 .STK-MED ONE PO (DC) Acetaminophen 650 MG Q4HP PRN PO Aspirin 325 MG DAILY PO Carvedilol 6.25 MG BID PO Gabapentin 600 MG TID PO Hydrocodone Bitart/Acetaminophen 1 TAB DAILY PO (r) Lisinopril 10 MG DAILY PO Pantoprazole Sodium 40 MG BID PO Paroxetine HCl 20 MG DAILY PO Nitroglycerin 1 IN Q6 TP Influenza Virus Vaccine Quadrival 0.5 ML PRN PRN IM Nicotine 21 MG DAILYP PRN TD Sodium Chloride 10 ML PRN PRN IV Nitroglycerin 0.4 MG [id number] PRN SL Immunization HX Ped.Immunizations UTD No DT/Tetanus 1-4 YRS AGO Flu [id number] Pneumonia Never Had TB Test in last year No Family history Family HX Family Hx Insignificant No Diabetes Yes CAD No Hypertension Yes Hyperlipidemia No Cancer Yes TB No Social Hx: Smoking HX Tobacco No Type Cigarettes Packs/day < 1 PACK Are you/the child exposed to second-hand smoke: Yes Alcohol Alcohol: Yes (occasional bourbon) How much do you drink Less Than One Drink A Day For how long Longer Than 5 Years When was your last drink Greater Than 72 Hours Ago Hx of Drug Use Drug Use? No Patien't marital status is Review of systems: Constitutional No: no symptoms reported. Respiratory No: no symptoms reported. Cardiovascular see HPI, chest pain Gastrointestinal/Abdominal abdominal pain Genitourinary No: no symptoms reported. Musculoskeletal back pain. Neurological No: no symptoms reported. Exam: Admission Vital Signs: 1ST Vital Signs Result Date Time Pulse Ox 98 09/15 2129 B/P 122/79 09/15 2129 Temp 99.4 09/15 2129 Pulse 103 09/15 2129 Resp 16 09/15 2129 O2 Delivery ROOM AIR 09/16 025 O2 Flow Rate 2 09/16 0345 Last Vital Signs: Vital Signs Result Date Time Resp 20 09/18 926 Pulse Ox 95 09/18 923 B/P 107/68 09/18 923 Temp 97.4 09/18 923 Pulse 80 09/18 923 O2 Delivery ROOM AIR 09/18 0742 O2 Flow Rate 2 09/16 0345 Exam General appearance: alert, awake, no acute distress Neck: no carotid bruit, no JVD Cardiovascular: regular rate & rhythm, no murmur Respiratory: clear to auscultation, good air movement ABD: soft, no tenderness Extremities: moves all, no peripheral edema Neuro: alert, intact, oriented Laboratory data: Laboratory Tests 09/16/17 1302: Troponin I < 0.02 09/16/17 0930: Troponin I < 0.02 09/16/17 0500: Troponin I 0.03 09/16/17 0025: Troponin I 0.07 H 09/15/170: Troponin I < 0.02 09/15/172149: Sodium 143, Potassium 4.1, Chloride 107, Carbon Dioxide 25, BUN 12, Creatinine 1.0, Estimated Creat Clear 174, Estimated GFR (MDRD) 84, Glucose 115 H, Calcium 9.2, Total Bilirubin 0.3, AST 20, ALT 42, Alkaline Phosphatase 94, Total Protein 7.9, Albumin 3.8, Globulin 4.1 H, Albumin/Globulin Ratio 0.9 L, WBC 9.4, RBC 5.02, Hgb 14.3, Hct 42.2, MCV 84.0, RDW 13.3, Plt Count 375, MPV 6.7 L, Gran % 57.1, Gran # 5.4, Lymphocytes % 30.8, Monocytes % 6.4, Eosinophils % 4.9, Basophils % 0.7, Lymphocytes # 2.9, Monocytes # 0.6, Eosinophils # 0.5 H, Basophils # 0.1, PUBS MCHC 33.8, MCH 28.4 Plan Assessment: 1. Chest pain with isolated elevated troponin in a patient with cardiac risk factors including hypertension, hyperlipidemia, family history and abnormal electrocardiogram. Patient is unable to adequately exercise due to chronic back pain for which he is on chronic narcotic therapy. His obesity precludes diagnostic Lexiscan Myoview interpretation. It is felt with the patient's symptoms, risk factors, elevated troponin and abnormal electrocardiogram that cardiac catheterization is the best option to define his coronary anatomy. Echocardiogram this morning does not show any evidence of pericardial effusion. It does show preserved LEFT ventricular ejection fraction without significant valvular heart disease. Risk and benefits discussed with patient and and patient agrees to proceed in this fashion. 2. Hypertension 3. Hyperlipidemia 4. Chronic pain syndrome with chronic narcotic use. 5. Obesity Plan: Discussed with Dr. Miller. See above. at 1047
--- NOTE | 2017-09-18 13:52 | RADIOLOGY REPORT PS360 ---
CARDIAC CATHETERIZATION DATE OF CATHETERIZATION:09/18/2017 1:32 PM PROCEDURES: 1. Left heart catheterization 2. Left ventriculogram 3. Selective coronary angiogram INDICATION FOR TEST: 1. Unstable angina Clinical history; 36-year-old gentleman who is hypertensive hyperlipidemic on chronic pain medicines/opiates who experienced prolonged chest pain radiating into his neck relieved by nitroglycerin accompanied by a troponin elevation. Patient had a baseline abnormal EKG and was unable to exercise on treadmill. Because of his distorted perception to pain from his chronic pain medications combined with his clinical presentation and associated risk factors with a troponin bump it was felt cardiac catheterization was most appropriate Informed consent was obtained prior to the procedure. COMPLICATIONS: None ESTIMATED BLOOD LOSS: Less than 10 ml. TECHNIQUE: One percent lidocaine used to anesthetize the right anterior aspect of the wrist. The right radial artery was accessed via the Seldinger technique. A 6 Green[place]ic sheath was placed in the right radial artery. 2.5 mg of verapamil, 800 mcg of nitroglycerin and 5000 U Heparin were given through the arterial sheath. The trap catheter was also used to perform left heart catheterization and left ventriculography. At the end of the procedure the patient was transferred to the post-op holding area in stable condition for arterial sheath removal. ANGIOGRAPHIC RESULTS: 1. The left main artery normal 2. The left anterior descending artery normal 3. The circumflex artery normal 4. The right coronary artery dominant normal 5. The LOVE ventriculogram reveals normal 65% 6. The left ventricular end-diastolic pressure 10 mmHg IMPRESSION: 1. Normal coronary arteries. 2. Normal ejection fraction 3. Normal left ventricular end-diastolic pressure PLAN: 1. Evaluation noncardiac chest pain 2. Risk factor modification
--- NOTE | 2017-09-18 16:50 | DISCHARGE SUMMARY STANDARD ---
Discharge Summary ([facility]2) Date of admission: 09/16/17 Date of discharge: 09/18/17 Problem List: 1. Elevated troponin 2. Lumbar disc disease with radiculopathy 3. Chest pain 4. GERD (gastroesophageal reflux disease) 5. H/O pericarditis History of present illness: Mr Jefferson is a 36-year-old white male who presented to the emergency room at [facility]. He was carrying out the garbage when he experienced some chest pain. The pain was in the epigastrium going up the chest and radiating to the neck. He felt that his heart rate was elevated during this period of time. He felt some shortness of breath. Symptoms lasted for about 45 minutes at which time he was in the emergency department and received nitroglycerin sublingual with resolution of symptoms. During his time in the emergency room his troponin went from 0.02 to 0.07. He was admitted for observation and possible cardiac catheterization. He was noted to have a cardiac history. In 1996 during the time he was in the he had problems with pericarditis and myocarditis. There was some question of whether he had a myocardial infarction. However, he never had a cardiac catheterization. He has been seen by Dr. Estrellita Yanes but did not have a catheterization or treadmill test. He has been taking carvedilol but does not have a clear history for hypertension. Exam on admission: 1ST Vital Signs Result Date Time Pulse Ox 98 09/15 2129 B/P 122/79 09/15 2129 Temp 99.4 09/15 2129 Pulse 103 09/15 2129 Resp 16 09/15 2129 O2 Delivery ROOM AIR 09/16 0250 O2 Flow Rate 2 09/16 0345 Exam: General appearance: normal appearance, alert, no acute distress Eyes: anicteric, conjunctiva clear, PERRLA ENT: mucous membranes moist Neck: normal inspection Cardiovascular: no ectopics, normal sinus rhythm, no murmur Respiratory: aerating well, clear to auscultation, no respiratory distress ABD: soft, no tenderness, no guarding, no organomegaly, obese Genitourinary: normal voiding & quantity Extremities: normal exam, no peripheral edema Musculoskeletal: normal exam Skin: normal exam, dry, intact, normal color Neuro: normal exam, alert, oriented, speech clear Hospital Course: After resolution of the CP in the ER patient had no further episodes of chest discomfort. His initial cardiac troponin was normal but his second troponin returned elevated with 3 subsequent normal troponins. Cardiology was consulted for evaluation and recommendations. Patient's electrocardiogram showed sinus with scooping ST elevation noted in the inferior and anterolateral leads, possible early repolarization abnormality. Cardiology made the following assessment: Chest pain with isolated elevated troponin in a patient with cardiac risk factors including hypertension, hyperlipidemia, family history and abnormal electrocardiogram. Patient was unable to adequately exercise due to chronic back pain for which he was on chronic narcotic therapy and his obesity precluded diagnostic Lexiscan Myoview interpretation. It was felt with the patient's symptoms, risk factors, elevated troponin and abnormal electrocardiogram that cardiac catheterization was the best option to define his coronary anatomy. Echocardiogram did not show any evidence of pericardial effusion. It did show preserved LEFT ventricular ejection fraction without significant valvular heart disease.. Left cardiac cath on 09/18/17 revealed: 1. Normal coronary arteries. 2. Normal ejection fraction 3. Normal left ventricular end-diastolic pressure Patient had no further chest discomfort. He was discharged on 09/18/17 and to follow up with his PCP for further evaluation of the chest pain and risk factor modification. Laboratory data this visit: 09/16/17 0500: Troponin I 0.03 09/16/17 0025: Troponin I 0.07 H 09/15/170: Troponin I < 0.02 09/15/170: Sodium 143, Potassium 4.1, Chloride 107, Carbon Dioxide 25, BUN 12, Creatinine 1.0, Estimated Creat Clear 174, Estimated GFR (MDRD) 84, Glucose 115 H, Calcium 9.2, Total Bilirubin 0.3, AST 20, ALT 42, Alkaline Phosphatase 94, Total Protein 7.9, Albumin 3.8, Globulin 4.1 H, Albumin/Globulin Ratio 0.9 L, WBC 9.4, RBC 5.02, Hgb 14.3, Hct 42.2, MCV 84.0, RDW 13.3, Plt Count 375, MPV 6.7 L, Gran % 57.1, Gran # 5.4, Lymphocytes % 30.8, Monocytes % 6.4, Eosinophils % 4.9, Basophils % 0.7, Lymphocytes # 2.9, Monocytes # 0.6, Eosinophils # 0.5 H, Basophils # 0.1, PUBS MCHC 33.8, MCH 28.4 Imagin09/15/17 CXR IMPRESSION: Normal chest. Discharge medications: Continue taking these medications: PAROXETINE HCL (Paxil) 20 MG TABLET 20 MILLIGRAM ORAL DAILY Methocarbamol (Robaxin 750MG) 750 MG TABLET 750 MILLIGRAM ORAL THREE TIMES A DAY Diclofenac Sodium (Diclofenac Sodium) 50 MG TABLET. 75 MILLIGRAM ORAL TWICE A DAY Carvedilol (Carvedilol 6.25MG) 6.25 MG TABLET 6.25 MILLIGRAM ORAL TWICE A DAY LISINOPRIL (Lisinopril) 10 MG TABLET 10 MILLIGRAM ORAL DAILY Gabapentin (Gabapentin) 600 MG TABLET 600 MILLIGRAM ORAL THREE TIMES A DAY Qty = 90 Omeprazole (Omeprazole 40MG) 40 MG CAPSULE. 40 MILLIGRAM ORAL DAILY CHOLECALCIFEROL (VITAMIN D3) (Vitamin D) 1,000 UNIT TABLET 7,000 UNITS ORAL DAILY Lactobacillus Combo No.11 (Probiotic) 1 EACH CAP.SPRINK 1 EACH ORAL DAILY NALOXEGOL OXALATE (Movantik) 25 MG TABLET 25 MILLIGRAM ORAL EVERY MORNING Acetaminophen (Tylenol XS 500MG) 500 MG TABLET 325 MILLIGRAM ORAL EVERY 6 HOURS NEEDED as needed for PAIN HYDROCODONE/ACETAMINOPHEN (Hydrocodon-Acetaminoph 7.5-325) 1 EACH TABLET 1 TABLET ORAL DAILY Disposition: Discharged to home in stable and satisfactory condition. Follow up: 7 DAYS with: KAMAR RODRIGUEZ Activity: Cont Current activity Diet: Continue same diet Discharge to: HOME Agency needed? N To continue with meds as per reconciliation sheet at 1706
--- NOTE | 2017-09-18 20:03 | RADIOLOGY REPORT PS360 ---
PROCEDURE: 2-D M-mode and color Doppler study INDICATIONS FOR THE TEST: Chest pain X COPD Heart Murmur Tobacco Smoking Palpitations Fatigue Syncope Edema Hypertension Diabetes Mellitus Rheumatic Fever SOB GRAF Obesity Hyperlipidemia Family History HD Additional History PATIENT INFORMATION HEIGHT: 72 WEIGHT:260 GENDER: Male B/P:122/79 2-D/M-MODE INTERPRETATION: 2-D MEASUREMENTS OBSERVED VALUES IN CMS Right Ventricular Dimension (RVDd) 2.3 Interventricular Septum (Thickness)(IVsd) 1.0 Left Ventricular Internal Dimensions(LVIDd) 5.0 Left Ventricular Posterior Wall (Thickness)(LVPWd) 1.0 Aortic Root 3.5 Aortic Cusp Separation 2.2 Left Atrial Dimensions (LAD) 4.7 2D 1. Left atrium is mildly enlarged, left ventricle is normal size, left ventricle wall thickness is upper limit of the normal, visually estimated ejection fraction approximately 50%, there appears to be apical wall motion abnormality, endocardial surfaces are poorly visualized. 2. The right atrium and right ventricle are normal size and contractility. 3. The aortic valve is minimally thickened and fibrosed. 4. The mitral and tricuspid valve leaflets are grossly normal. 5. The pulmonic valve is poorly visualized. 6. No significant pericardial effusion noted. DOPPLER INTERROGATION: Doppler interrogation of the aortic, mitral and tricuspid valvular presence of mild mitral and tricuspid regurgitation, tricuspid regurgitant jet velocity insufficient for calculation of the right ventricular systolic pressure, grade 1 diastolic dysfunction seen without tissue Doppler evidence of raised left atrial pressure. CONCLUSION: 1. Mildly enlarged left atrium, normal left ventricular size, visually estimated ejection fraction 50% with segmental wall motion abnormality described above, endocardial surface of poorly visualized. Grade 1 diastolic dysfunction seen without tissue Doppler evidence of raised left atrial pressure. 2. Mild mitral and tricuspid regurgitation. 3. No significant pericardial effusion noted.
== END 2017-09-18 18:40 | disposition home or self-care (01) | DRG 287 ==
LOC: ER 21:27 → 2ND 09-16 01:58
PROVIDERS: Emergency Medicine; Internal Medicine
PROC: B2111ZZ Fluoroscopy of Multiple Coronary Arteries using Low Osmolar Contrast (ICD-10-PCS; 2017-09-18)
PROC: B2151ZZ Fluoroscopy of Left Heart using Low Osmolar Contrast (ICD-10-PCS; 2017-09-18)
PROC: 4A023N7 Measurement of Cardiac Sampling and Pressure, Left Heart, Percutaneous Approach (ICD-10-PCS; principal; 2017-09-18 14:45)
DX: R07.9 Chest pain, unspecified (principal); G89.4 Chronic pain syndrome; I10 Essential (primary) hypertension; Z79.891 Long term (current) use of opiate analgesic; M51.16 Intervertebral disc disorders with radiculopathy, lumbar region
CPT/HCPCS: C1725; C1760; C1769; J1644; Q9967